=== PATIENT | female | born 1970 | race Caucasian/White ===

== ENCOUNTER → 2017-05-10 | Outpatient (CLI) | payer MEDICARE, BC ==
[~2017-05-10] MED LIST: AMOX-559 PO; AZIT-101 PO; B12/1TAB PO; BUPR1PAT9 TD; BUTA1CAP4 PO; CALC200T27 PO; CEFU500T50 PO; CHOL10005 PO; CIPR-345 PO; CLON-1 PO; CLON-327 PO; CLON-389 PO; CLON0.5T66 PO; CYAN1000 IJ; CYCL10TA29 PO; DIAZ-305 PO; DIAZ2TAB72 PO; DRON2.5C10 PO; DULO60CA56 PO; ERGO500037 PO; ESOM40CA42 PO; FERR240T18 PO; FLU20 PO; FLUD0.1T12 PO; FLUO-202 PO; FLUO40CA76 PO; FOLI-68 PO; GENT5DRO31 OP; GOLYTE FT; HYDR-4305 PO; LEVO-3 PO; LEVO125T77 PO; LEVO200T44 PO; LOR5/325 PO; LORA-1455 PO; METH10 FT; METH36TA11 PO; METH54TA10 PO; METO-733 PO; MULT-1335 PO; OLAN10TA25 PO; OLAN2.5T22 PO; OLAN5TAB27 PO; OMEP40CA45 PO; ONDA4TAB PO; OXYC-869 PO; OXYC15TA79 PO; OXYC5TAB38 PO; PANT40TA65 PO; PENI-24 PO; PER PO; PROM-110; PROM-110 PO; PROM25SU8 PR; QUET300T PO; RANI-324 PO; ROPI0.5T25 PO; ROPI2TAB28 PO; SCOP1PAT16 TD; SCOT TD; SUCR1ORA17 PO; SUCR1TAB85 PO; THIA100T2 PO; TOPI50TA99 PO; TRAM-420 PO; TRET45CR28 TP; TRIA15CR40 TP; ZOLP-1 PO; ZOLP-350 PO; [UNRECOGNIZED DRUG - CODE] PO
--- NOTE | 2017-05-10 14:35 | EKG ---
FACILITY: [facility] - [place] PATIENT NAME: VENKAT ORTEGA : [id number] MR: [id number] V: [id number] EXAM DATE: ORDERING PHYSICIAN: RENAN MADISON TECHNOLOGIST: NANCY Test Reason : CHEST PAIN Blood Pressure : / mmHG Vent. Rate : 075 BPM Atrial Rate : 075 BPM P-R Int : 132 ms QRS Dur : 088 ms QT Int : 368 ms P-R-T Axes : 073 080 070 degrees QTc Int : 410 ms Normal sinus rhythm with sinus arrhythmia Normal ECG When compared with ECG of 06-MAR-2016 12:27, No significant change was found Referred By: GRICELDA Confirmed By:
== END ==
LOC: RESP 10:32
PROVIDERS: ATTEND Surgery
DX: Z02.9 Encounter for administrative examinations, unspecified (principal)

== ENCOUNTER 2017-05-23 15:00 | Outpatient (RCR) | payer MEDICARE, BC ==
[2017-03-08 15:29] VITALS: BP 94/52
[2017-03-08 16:11] LABS: PLATELET COUNT, AUTOMATED 235 K/uL (150-450)
[2017-03-18 12:03] LABS: PLATELET COUNT, AUTOMATED 368 K/uL (150-450)
[2017-03-18 13:08] VITALS: BP 102/62
[2017-04-03 14:22] VITALS: BP 93/66
[2017-04-12 14:39] VITALS: BP 111/68
[2017-05-02 11:28] LABS: PLATELET COUNT, AUTOMATED 261 K/uL (150-450)
[2017-05-09 08:55] VITALS: BP 91/62
[2017-05-09 09:21] LABS: PLATELET COUNT, AUTOMATED 350 K/uL (150-450)
[2017-05-16 12:30] VITALS: BP 99/64
[2017-05-16 13:36] LABS: PLATELET COUNT, AUTOMATED 334 K/uL (150-450)
[~2017-05-23 15:00] MED LIST changes: +ALTEPLASE RECOMB 2 MG VIAL IVP PRN; +DEXTROSE 5%(*) 100 ML BAG 100 ML IVPB PRN; +FERRIC CARBOXY 750 MG SDV 750 MG in NS(*) 0.9% 250 ML BAG 250 ML IVP ONE; +NS(*) 0.9% 100 ML BAG 100 ML IVPB PRN; +NS(*) 0.9% 500 ML BAG 500 ML IV PRN; +WATER STERILE 10 ML VIAL IVP PRN
[2017-05-23 15:52] LABS: PLATELET COUNT, AUTOMATED 222 K/uL (150-450)
== END 2017-06-06 ==
LOC: SPU 15:00
PROVIDERS: ATTEND Internal Medicine
DX: R62.7 Adult failure to thrive (principal); R63.4 Abnormal weight loss; R74.8 Abnormal levels of other serum enzymes; I95.9 Hypotension, unspecified; Z98.84 Bariatric surgery status; Z93.1 Gastrostomy status
CPT/HCPCS: 36415; 36592; 83735; 84100; 85025; 85027; 96365; 96366; 96375; J1439; J2997; J7050; 82040; 82247; 82310; 82374; 82435; 82565; 82947; 84075; 84132; 84155; 84295; 84450; 84460; 84520

== ENCOUNTER → 2017-06-20 | Outpatient (CLI) | payer MEDICARE, BC ==
[~2017-06-20] MED LIST changes: -ALTEPLASE RECOMB 2 MG VIAL IVP PRN; -DEXTROSE 5%(*) 100 ML BAG 100 ML IVPB PRN; -FERRIC CARBOXY 750 MG SDV 750 MG in NS(*) 0.9% 250 ML BAG 250 ML IVP ONE; +LIDOCAINE MPF 1% 5 ML VIAL ONE; +NS(*) 0.9% 10 ML VIAL 0 ML ONE; -NS(*) 0.9% 100 ML BAG 100 ML IVPB PRN; -NS(*) 0.9% 500 ML BAG 500 ML IV PRN; -WATER STERILE 10 ML VIAL IVP PRN
--- NOTE | 2017-06-20 13:06 | RADIOLOGY IMAGING REPORT ---
[place] [facility] [place] Chela Metcalf : 1970 MR: [id number] V: [id number] EXAM DATE: ORDERING PHYSICIAN: RENAN MADISON TECHNOLOGIST: Location: [facility] [place] Patient: Chela Metcalf : 1970 Visit/Account:[id number] Date of Sevice: 06/20/2017 PICC LINE PLACEMENT, PICC LINE INSERTION Exam: PICC line placement with ultrasound and fluoroscopic guidance. Indication: Long-term IV access Radiation dose: DAP 33.91 uGym2; AK 0.9 mGy Findings: Prior to the exam, the risks and benefits of a PICC line were discussed with the patient an d informed consent was obtained. The patient was placed supine on the fluoroscopy table and the [facility] t arm was prepped and draped in normal sterile fashion. 1% buffered lidocaine was locally injected f or analgesia. Next, using ultrasound guidance, a micropuncture needle was used to access the basilic vein. An ultrasound image was saved for the patient's permanent record in PACS. An 018 guidewire w as advanced, and then measurement was made to the high right atrium. A dual-lumen power PICC was the n placed via a 5 Vincentian peel-away sheath. The PICC was then secured at the skin. Impression: Successful placement of a dual lumen 5 Vincentian power PICC in the Right basilic vein. The catheter is ready for use. Report Dictated By: Gerardo Basurto at 06/20/2017 1:00 PM Report E-Signed By: Gerardo Basurto at 06/20/2017 1:01 PM NERYN:[id number]
--- NOTE | 2017-06-20 13:06 | RADIOLOGY IMAGING REPORT ---
FACILITY: [facility] [place] PATIENT NAME: Chela Metcalf : 1970 MR: [id number] V: [id number] EXAM DATE: ORDERING PHYSICIAN: RENAN MADISON TECHNOLOGIST: Location: [facility] Patient: Chela Metcalf : 1970 Visit/Account:[id number] Date of Sevice: 06/20/2017 PICC LINE PLACEMENT, PICC LINE INSERTION Exam: PICC line placement with ultrasound and fluoroscopic guidance. Indication: Long-term IV access Radiation dose: DAP 33.91 uGym2; AK 0.9 mGy Findings: Prior to the exam, the risks and benefits of a PICC line were discussed with the patient an d informed consent was obtained. The patient was placed supine on the fluoroscopy table and the [facility] t arm was prepped and draped in normal sterile fashion. 1% buffered lidocaine was locally injected f or analgesia. Next, using ultrasound guidance, a micropuncture needle was used to access the basilic vein. An ultrasound image was saved for the patient's permanent record in PACS. An 018 guidewire w as advanced, and then measurement was made to the high right atrium. A dual-lumen power PICC was the n placed via a 5 Bahamian peel-away sheath. The PICC was then secured at the skin. Impression: Successful placement of a dual lumen 5 Bahamian power PICC in the Right basilic vein. The catheter is ready for use. Report Dictated By: Gerardo Basurto at 06/20/2017 1:00 PM Report E-Signed By: Gerardo Basurto at 06/20/2017 1:01 PM NERYN:[id number]
== END ==
LOC: US 01:25
PROVIDERS: ATTEND Surgery
DX: E46 Unspecified protein-calorie malnutrition (principal)
CPT/HCPCS: 36569; 76937; C1751; J2001

== ENCOUNTER 2017-07-01 14:33 | Inpatient (IN) | payer MEDICARE, BC ==
[~2017-07-01] VITALS: Ht 167.6 cm; Wt 64.0 kg
[2017-07-01] MEDS ORDERED: VANCOMYCIN 1 GM ADDVIAL 1 GM in NS(*) 0.9% 250 ML ADDVAN BAG 250 ML IVPB ONE (15:30)
[2017-07-01] MEDS ORDERED: NS(*) 0.9% 1000 ML BAG 1,000 ML IV ONE ×2 (15:30→17:25)
[2017-07-01] MEDS ORDERED: PIPERACILLIN/TAZO*3.375GM VIAL 3.375 GM in NS(*) 0.9% 100 ML ADDVANT BAG 100 ML IVPB ONE (15:30)
--- NOTE | 2017-07-01 15:33 | ER Report ---
History and Physical Time Seen By MD: 15:33 HPI/ROS CHIEF COMPLAINT: PICC line infection. HISTORY OF PRESENT ILLNESS: This is a 47 year old female. She was sent over to the ER from Dr. Arnold today. She was seen because of fevers and chills and had pus coming from the area of her PICC line in right arm. Dr. Arnold removed the PICC line, obtained blood work and blood cultures. Recommended further evaluation in the ER and need for admission for what appeared to be sepsis. She had low blood pressure in the office and was low here as well. Mild elevation of her liver function tests. Bandemia and shift on blood count, but normal white blood cell count. CRP significantly elevated. The Patient has urinary frequency, but no dysuria. No cough. She gets a little short of breath when her chills and shivering are severe, but otherwise has no shortness of breath. Trouble eating and pain with use of her G-tube, which is why she had the PICC line to get overnight TPN for weight loss problems. Has seen Dr. Rhodes recently for anemia and had IV iron infusion. Had similar problem with PICC line in the left arm last month, which was removed. Rash around the site last month and with this current PICC line problem as well. GI and general surgery are currently doing further workup for solutions. REVIEW OF SYSTEMS: Constitutional: As above. Eyes: No vision changes. ENT: Mild sore throat. No congestion. Cardiovascular: No chest pain. Respiratory: No shortness of breath. Gastrointestinal: Normal bowels. Genitourinary: As above. Musculoskeletal: Chronic back pain. Skin: As above. Neurological: Generalized weakness. Allergies: Coded Allergies: Sulfa (Sulfonamide Antibiotics) (Verified Allergy, Mild, HIVES, 04/30/17) NSAIDS (Non-Steroidal Anti-Inflamma (Unverified Allergy, Unknown, 04/30/17 ) Home Meds Active Scripts Ferrous Gluconate (FERROUS GLUCONATE) 240 Mg Tablet, 240 MG PO TID, #90 TAB 5 Refills Prov:TREY HOWARD MD 05/01/17 Scopolamine (Scopolamine) 1 Mg/3 Day Patch.td.3, 1 MG TD Q72H, #10 PATCH.72H Prov:TREY HOWARD MD 02/28/17 Ergocalciferol (Vitamin D2) (VITAMIN D2) 50,000 Unit Capsule, 18637 UNIT PO Q2WK , #2 CAPSULE 6 Refills Prov:TREY HOWARD MD 02/28/17 Fludrocortisone Acetate (FLUDROCORTISONE ACETATE) 0.1 Mg Tablet, 0.1 MG PO BID, #60 TAB 3 Refills Prov:TREY HOWARD MD 11/21/16 Levothyroxine Sodium (LEVOTHYROXINE SODIUM) 100 Mcg Tablet, 100 MCG PO QDAY for 30 Days, #30 TAB 6 Refills Prov:TREY HOWARD MD 10/08/16 Pantoprazole Sodium (PANTOPRAZOLE SODIUM) 40 Mg Tablet.dr, 1 TAB PO BID, #60 TAB.SR 6 Refills Prov:TREY HOWARD MD 10/04/16 Tretinoin 0.1% Top Cream (RETIN-A 0.1% TOP CREAM) 45 Gm Cream..g., 45 GM TP BID , #1 BOTTLE 1 Refill .025% Prov:TREY HOWARD MD 04/20/16 Cyanocobalamin (Vitamin B-12) (CYANOCOBALAMIN INJECTION) 1,000 Mcg/1 Ml Vial, 1000 MCG IJ Q30D, #12 VIAL 1 Refill Prov:RENAN MADISON MD 01/20/14 Reported Medications Dronabinol (MARINOL) 2.5 Mg Capsule, 2.5 MG PO BID, CAPSULE 02/28/17 Olanzapine (OLANZAPINE) 10 Mg Tablet, 10 MG PO HS 11/21/16 Oxycodone Hcl 15 Mg Tab (OXYCODONE HCL 15 MG TAB) 15 Mg Tablet, 15 MG PO Q6H, TAB 11/21/16 Folic Acid (FOLIC ACID) 1 Mg Tablet, 1 MG PO QDAY, TAB 08/17/16 Clonazepam (KLONOPIN) Unknown Strength Tablet, 1 MG PO TID, TAB 06/27/16 Thiamine Mononitrate (VITAMIN B-1) 100 Mg Tablet, 100 MG PO QDAY 02/07/16 Cholecalciferol (Vitamin D3) (VITAMIN D3) 1,000 Unit Tablet, 3 UNIT PO HS, TAB 02/07/16 Calcium Citrate (CALCIUM CITRATE) 200 Mg Tablet, 1 MG PO BID 01/20/16 Fluoxetine Hcl (PROZAC) 20 Mg Capsule, 2 TAB PO QDAY, CAPSULE 10/07/15 Discontinued Reported Medications Gentamicin Sulfate (GENTAMICIN SULFATE) 5 Ml Drops, 5 ML OP 05/03/17 Reviewed Nurses Notes: Yes Hx Smoking: No Smoking Status: Current: Every Day Smoker Exposure to Second Hand Smoke?: No Hx Substance Use Disorder: No Hx Alcohol Use: No Constitutional Vital Sign - Last 24 Hours 07/01/17 07/01/17 07/01/17 07/01/17 14:35 15:36 16:00 16:03 Temp 98.8 Pulse 89 87 Resp 16 B/P (MAP) 83/74 83/74 (77) 88/57 (67) Pulse Ox 96 95 O2 Delivery Room Air 07/01/17 07/01/17 07/01/17 07/01/17 16:30 16:35 16:45 16:55 Pulse 84 81 83 B/P (MAP) 107/66 (80) Pulse Ox 96 96 93 07/01/17 07/01/17 07/01/17 07/01/17 17:00 17:05 17:15 17:20 Pulse 78 77 81 B/P (MAP) 90/50 (63) Pulse Ox 93 91 94 07/01/17 07/01/17 07/01/17 07/01/17 17:25 17:30 17:35 17:40 Pulse 76 79 80 79 B/P (MAP) 93/58 (70) Pulse Ox 94 91 95 93 07/01/17 07/01/17 07/01/17 07/01/17 17:45 17:50 17:55 18:00 Pulse 76 78 78 76 B/P (MAP) 91/60 (70) Pulse Ox 92 92 91 91 07/01/17 18:05 Pulse 77 Pulse Ox 92 Physical Exam General Appearance: The patient is alert. No acute distress. Eyes: Pupils are equal, round. No pallor, injection or icterus. ENT: Mucous membranes are moist. Normal oral mucosa. Posterior oropharynx is normal. Respiratory: Lungs are clear to auscultation. Cardiovascular: Regular rate and rhythm. No murmurs, gallops or rubs. Normal capillary refill. No edema. Gastrointestinal: Abdomen is soft, non-tender. Nondistended. Normal active bowel sounds. No costovertebral angle tenderness with percussion. Neurological: Alert and oriented x3. General weakness, without focal deficits. Skin: Warm and dry. Rash which is red, itchy and scaly around the site of PICC line on right arm. DIFFERENTIAL DIAGNOSIS: After history and physical exam, differential diagnosis was considered for PICC line infection with possible sepsis. Will plan on admission after starting IV fluids, IV Vancomycin, and IV Zosyn. Medical Decision Making Data Points Result Diagram: 07/02/17 0557 07/02/17 0557 Laboratory Hematology Test 07/01/17 15:31 07/01/17 16:25 Urine Color Evette Urine Clarity Slightly-cloudy Urine pH 5.0 pH (4.8-9.5) Urine Specific Buckley 1.017 Urine Protein 30 mg/dL (NEGATIVE) Urine Glucose (UA) Negative mg/dL (NEGATIVE) Urine Ketones Negative mg/dL (NEGATIVE) Urine Blood Large (NEGATIVE) Urine Nitrite Positive (NEGATIVE) Urine Bilirubin Negative (NEGATIVE) Urine Urobilinogen 2.0 mg/dL (0.2-1.9) Urine Leukocyte Esterase Trace (NEGATIVE) Urine RBC 151 /HPF (0-2/HPF) Urine WBC 4 /HPF (0-5/HPF) Urine Squamous Epithelial Cells Moderate /LPF (</=FEW) Urine Renal Epithelial Cells Few /LPF (NONE-FEW) Urine Bacteria Few /HPF (NONE-FEW) Urine Hyaline Casts Many /LPF (NONE-FEW) Urine Mucus Few /HPF (NONE-FEW) Lactate 1.0 mmol/L (0.7-2.1) Chemistry Test 07/01/17 15:31 07/01/17 16:25 Urine Color Evette Urine Clarity Slightly-cloudy Urine pH 5.0 pH (4.8-9.5) Urine Specific Buckley 1.017 Urine Protein 30 mg/dL (NEGATIVE) Urine Glucose (UA) Negative mg/dL (NEGATIVE) Urine Ketones Negative mg/dL (NEGATIVE) Urine Blood Large (NEGATIVE) Urine Nitrite Positive (NEGATIVE) Urine Bilirubin Negative (NEGATIVE) Urine Urobilinogen 2.0 mg/dL (0.2-1.9) Urine Leukocyte Esterase Trace (NEGATIVE) Urine RBC 151 /HPF (0-2/HPF) Urine WBC 4 /HPF (0-5/HPF) Urine Squamous Epithelial Cells Moderate /LPF (</=FEW) Urine Renal Epithelial Cells Few /LPF (NONE-FEW) Urine Bacteria Few /HPF (NONE-FEW) Urine Hyaline Casts Many /LPF (NONE-FEW) Urine Mucus Few /HPF (NONE-FEW) Lactate 1.0 mmol/L (0.7-2.1) Urinalysis Test 07/01/17 15:31 Urine Color Evette Urine Clarity Slightly-cloudy Urine pH 5.0 pH (4.8-9.5) Urine Specific Buckley 1.017 Urine Protein 30 mg/dL (NEGATIVE) Urine Glucose (UA) Negative mg/dL (NEGATIVE) Urine Ketones Negative mg/dL (NEGATIVE) Urine Blood Large (NEGATIVE) Urine Nitrite Positive (NEGATIVE) Urine Bilirubin Negative (NEGATIVE) Urine Urobilinogen 2.0 mg/dL (0.2-1.9) Urine Leukocyte Esterase Trace (NEGATIVE) Urine RBC 151 /HPF (0-2/HPF) Urine WBC 4 /HPF (0-5/HPF) Urine Squamous Epithelial Cells Moderate /LPF (</=FEW) Urine Renal Epithelial Cells Few /LPF (NONE-FEW) Urine Bacteria Few /HPF (NONE-FEW) Urine Hyaline Casts Many /LPF (NONE-FEW) Urine Mucus Few /HPF (NONE-FEW) EKG/Imaging Imaging CHEST PA AND LAT HISTORY: sepsis COMPARISON: None FINDINGS: Cardiomediastinal contours: Normal Lungs and pleura: Normal Bones/soft tissues: Normal Other findings: None significant IMPRESSION: 1. Normal chest Report Dictated By: Graham Pak MD at 07/01/2017 4:24 PM ED Course/Re-evaluation Clinical Indication for ER IV: Hydration, IV Access ED Course Discussed with Dr. Ktaz. Started on IV Vancomycin and IV Zosyn. Given a liter of normal saline and a second liter started. [facility] line infection, sepsis. Decision to Disposition Date: Jul 01, 2017 Decision to Disposition Time: 17:07 Depart Departure Latest Vital Signs Vital Signs Date Time Temp Pulse Resp B/P (MAP) Pulse Ox O2 Delivery O2 Flow Rate FiO2 07/01/17 18:05 77 92 07/01/17 18:00 91/60 (70) 07/01/17 14:35 98.8 16 Room Air Impression: Primary Impression: Sepsis Additional Impressions: PICC line infection Urinary tract infection Condition: Condition Unchanged Disposition: Admitted from ER Referrals: TREY HOWARD MD (PCP) Problem Qualifiers Primary Impression: Sepsis Sepsis type: sepsis due to unspecified organism Qualified Codes: A41.9 - Sepsis, unspecified organism Additional Impressions: PICC line infection Encounter type: initial encounter Qualified Codes: T80.219A - Unspecified infection due to central venous catheter, initial encounter Urinary tract infection Urinary tract infection type: acute cystitis Hematuria presence: without hematuria Qualified Codes: N30.00 - Acute cystitis without hematuria AISHA HACKETT MD Jul 01, 2017 15:33
--- NOTE | 2017-07-01 16:29 | RADIOLOGY IMAGING REPORT ---
FACILITY: [facility] PATIENT NAME: Chela Metcalf : 1970 MR: [id number] V: [id number] EXAM DATE: ORDERING PHYSICIAN: AISHA HACKETT TECHNOLOGIST: Location: [facility] Patient: Chela Metcalf : 1970 Visit/Account:[id number] Date of Sevice: 07/01/2017 CHEST PA AND LAT HISTORY: sepsis COMPARISON: None FINDINGS: Cardiomediastinal contours: Normal Lungs and pleura: Normal Bones/soft tissues: Normal Other findings: None significant IMPRESSION: 1. Normal chest Report Dictated By: Graham Pak MD at 07/01/2017 4:24 PM Report E-Signed By: Graham Pak MD at 07/01/2017 4:25 PM WSN:[id number]
[2017-07-01 16:34] LABS: PLATELET COUNT, AUTOMATED 83 K/uL (150-450)
[2017-07-01] MEDS ORDERED: ACETAMINOPHEN 500 MG TAB PO ONE (16:45)
[2017-07-01] MEDS ORDERED: oxyCODONE HCL 5 MG CAP PO ONE (16:45)
[2017-07-01] MEDS ORDERED: VANCOMYCIN 1 GM ADDVIAL ONE (17:03)
[2017-07-01] MEDS ORDERED: NS(*) 0.9% 1000 ML BAG 1,000 ML IV PRN (18:30)
[2017-07-01] MEDS ORDERED: SCOPOLAMINE 1.5 MG PATCH TD PRN (18:45)
[2017-07-01] MEDS ORDERED: clonazePAM 1 MG TAB PO PRN (18:45)
[2017-07-01 19:01] VITALS: BP 101/61
--- NOTE | 2017-07-01 19:05 | History & Physical ---
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 She had the PICC line placed 11 days ago on 06/20. She reports that about 8 days ago, that she noted purulent discharge from around the PICC line. She also then developed a rash around the site as with previous PICC lines. 2 days ago, she developed chills alternating with sweats. She went to her PCP's office today and they removed the PICC line, jazmyn labs and sent her to the ER. The patient denies cough, coryza, or dysuria. In the ER, she was given IVF, Vancomycin and Zosyn. History Problems: (1) History of peptic ulcer disease Status: Chronic (2) Malnutrition compromising bodily function Status: Chronic (3) Depression Status: Chronic (4) PEG (percutaneous endoscopic gastrostomy) adjustment/replacement/removal Status: Chronic (5) Dermatitis Status: Acute (6) Abdominal pain Status: Chronic Home Meds Active Scripts Ferrous Gluconate (FERROUS GLUCONATE) 240 Mg Tablet, 240 MG PO TID, #90 TAB 5 Refills Prov:TREY HOWARD MD 05/01/17 Scopolamine (Scopolamine) 1 Mg/3 Day Patch.td.3, 1 MG TD Q72H, #10 PATCH.72H Prov:TREY HOWARD MD 02/28/17 Ergocalciferol (Vitamin D2) (VITAMIN D2) 50,000 Unit Capsule, 00749 UNIT PO Q2WK , #2 CAPSULE 6 Refills Prov:TREY HOWARD MD 02/28/17 Fludrocortisone Acetate (FLUDROCORTISONE ACETATE) 0.1 Mg Tablet, 0.1 MG PO BID, #60 TAB 3 Refills Prov:TREY HOWARD MD 11/21/16 Levothyroxine Sodium (LEVOTHYROXINE SODIUM) 100 Mcg Tablet, 100 MCG PO QDAY for 30 Days, #30 TAB 6 Refills Prov:TREY HOWARD MD 10/08/16 Pantoprazole Sodium (PANTOPRAZOLE SODIUM) 40 Mg Tablet.dr, 1 TAB PO BID, #60 TAB.SR 6 Refills Prov:TREY HOWARD MD 10/04/16 Tretinoin 0.1% Top Cream (RETIN-A 0.1% TOP CREAM) 45 Gm Cream..g., 45 GM TP BID , #1 BOTTLE 1 Refill .025% Prov:TREY HOWARD MD 04/20/16 Cyanocobalamin (Vitamin B-12) (CYANOCOBALAMIN INJECTION) 1,000 Mcg/1 Ml Vial, 1000 MCG IJ Q30D, #12 VIAL 1 Refill Prov:RENAN MADISON MD 01/20/14 Reported Medications Gentamicin Sulfate (GENTAMICIN SULFATE) 5 Ml Drops, 5 ML OP 05/03/17 Dronabinol (MARINOL) 2.5 Mg Capsule, 2.5 MG PO BID, CAPSULE 02/28/17 Olanzapine (OLANZAPINE) 10 Mg Tablet, 10 MG PO QDAY 11/21/16 Oxycodone Hcl 15 Mg Tab (OXYCODONE HCL 15 MG TAB) 15 Mg Tablet, 15 MG PO Q6H, TAB 11/21/16 Folic Acid (FOLIC ACID) 1 Mg Tablet, 1 MG PO QDAY, TAB 08/17/16 Clonazepam (KLONOPIN) Unknown Strength Tablet, 1 MG PO TID, TAB 06/27/16 Thiamine Mononitrate (VITAMIN B-1) 100 Mg Tablet, 100 MG PO QDAY 02/07/16 Cholecalciferol (Vitamin D3) (VITAMIN D3) 1,000 Unit Tablet, 3 UNIT PO QDAY, TAB 02/07/16 Calcium Citrate (CALCIUM CITRATE) 200 Mg Tablet, 1 MG PO BID 01/20/16 Fluoxetine Hcl (PROZAC) 20 Mg Capsule, 2 TAB PO QDAY, CAPSULE 10/07/15 Allergies: Coded Allergies: Sulfa (Sulfonamide Antibiotics) (Verified Allergy, Mild, HIVES, 04/30/17) NSAIDS (Non-Steroidal Anti-Inflamma (Unverified Allergy, Unknown, 04/30/17 ) Patient History: Cancer of eye FATHER, Age:54 FH: COPD (chronic obstructive pulmonary disease) MOTHER, Age:54 FH: diabetes mellitus FATHER, Age:54 FH: hypothyroidism MOTHER, Age:54 FH: melanoma FATHER, Age:54 Other Social/Family Hx Quit smoking in 2014. Smoked for 20 years. No alcohol use. Hx Smoking: No Smoking Status: Current: Every Day Smoker Exposure to Second Hand Smoke?: No Caffeine Intake: Soda Caffeine/Cups Per Day: ABOUT 2/WEEK Hx Alcohol Use: No Hx Substance Use Disorder: No Social Drug Use: Never Review of Systems All Systems Reviewed/Normal: Yes, Except as Noted Exam Vital Signs Vital Signs Date Time Temp Pulse Resp B/P (MAP) Pulse Ox O2 Delivery O2 Flow Rate FiO2 07/01/17 19:11 99.1 113 14 131/83 (99) 92 Room Air General Appearance: Alert, Awake, No Acute Distress Neuro: No Gross deficits Eyes: PERRLA ENT: Moist Mucous Membranes Cardiovascular: Other (Borderline tachy) Respiratory: Clear to Auscultation GI: Abd Soft and Non-Tender (Feeding tube in place. ) Extremities: No Edema Medical Decision Making Data Points Result Diagram: 07/01/17 1625 Item Value Date Time Lactate 1.0 mmol/L 07/01/17 1625 Total Bilirubin 0.5 mg/dl 07/01/17 1211 Aspartate Amino Transf (AST/SGOT) 65 U/L H 07/01/17 1211 Alanine Aminotransferase (ALT/SGPT) 107 U/L H 07/01/17 1211 Alkaline Phosphatase 146 U/L H 07/01/17 1211 C-Reactive Protein 17.3 mg/dl H 07/01/17 1211 Platelet Count 116 K/uL L 07/01/17 1211 Platelet Count 83 K/uL L 07/01/17 1625 Hemoglobin 17.1 g/dL H 07/01/17 1211 Hemoglobin 15.3 g/dL 07/01/17 1625 White Blood Count 8.8 k/uL 07/01/17 1211 White Blood Count 8.5 k/uL 07/01/17 1625 Neutrophils % (Manual) 80 % H 07/01/17 1211 Band Neutrophils % 12 % 07/01/17 1211 Lymphocytes % (Manual) 2 % L 07/01/17 1211 Atypical Lymphocytes % 1 % 07/01/17 1211 Neutrophils (%) (Auto) 86.7 % H 07/01/17 1625 Lymphocytes (%) (Auto) 5.4 % L 07/01/17 1625 Monocytes (%) (Auto) 5.7 % 07/01/17 1625 Eosinophils (%) (Auto) 1.1 % 07/01/17 1625 Urine RBC 151 /HPF 07/01/17 1531 Urine Leukocyte Esterase Trace H 07/01/17 1531 Urine Nitrite Positive H 07/01/17 1531 Urine Squamous Epithelial Cells Moderate /LPF H 07/01/17 1531 Urine Hyaline Casts Many /LPF H 07/01/17 1531 EKG / Imaging Imaging CXR - 1. Normal chest Assessment and Plan Problems: (1) PICC line infection Status: Acute Assessment & Plan: She presented with chills for 2 days and purulent discharge from a PICC line for 8 days. The PICC line was placed 11 days prior to admission (06/20). It was removed in the outpatient clinic and blood cultures were drawn there. Lactate normal. BP is low normal, per her baseline. Will give Vancomycin and Primaxin and continue with hydration. Recheck blood cultures tomorrow morning. (2) Elevated liver enzymes Status: Acute Assessment & Plan: Etiology unclear. Will follow. (3) Malnutrition compromising bodily function Status: Chronic Assessment & Plan: Will give PPN and lipids for now. She can eat as tolerated. Continue vitamine supplements, Marinol, and Scopolamine. (4) Depression Status: Chronic Assessment & Plan: Continue Fluoxetine and Clonazepam. (5) Chronic marginal ulcer Status: Chronic Assessment & Plan: Continue Protonix (6) Hypotension Status: Chronic Assessment & Plan: Continue fludrocortisone. (7) Chronic pain Status: Chronic Assessment & Plan: Continue OxyContin and Oxycodone. Copies to: TREY HOWARD MD; RENAN MADISON MD Venous Thromboembolism Antithrombotics Is Pt On Any Antithrombotics?: No Exam Sepsis Risk: No Definite Risk Problem Qualifiers (1) PICC line infection: Encounter type: initial encounter Qualified Codes: T80.219A - Unspecified infection due to central venous catheter, initial encounter PATTIE VILLALOBOS MD Jul 01, 2017 19:05
[2017-07-01 19:11] VITALS: BP 131/83
[2017-07-01] MEDS: DRONABINOL 2.5 MG CAP PO SCH (20:58)
[2017-07-01] MEDS: PANTOPRAZOLE SOD 40 MG TABEC PO SCH (20:58)
[2017-07-01] MEDS: [UNRECOGNIZED DRUG - OTHER] PO SCH (20:59)
[2017-07-01] MEDS: FERROUS GLUCONATE 324 MG TAB PO SCH (20:59)
[2017-07-01] MEDS ORDERED: FERROUS GLUCONATE 324 MG TAB PO SCH (21:00)
[2017-07-01] MEDS: CALCIUM CITRATE/ERGOCALCIFEROL PO SCH (21:00)
[2017-07-01] MEDS: OLANZapine 5 MG TAB PO SCH (21:00)
[2017-07-01] MEDS: FAT EMULSION 20% 250 ML BAG 250 ML IVPB SCH (21:02)
[2017-07-01] MEDS: AMINO ACID IV SCH (21:03)
[2017-07-01] MEDS: MULTIVITAMINS IV SCH (21:03)
[2017-07-01] MEDS: [UNRECOGNIZED DRUG - OTHER] IV SCH (21:03)
[2017-07-01] MEDS: GLYCER IV SCH (21:03)
[2017-07-01] MEDS: IMIPENEM/CILASTA(*) 500MG VIAL 500 MG in NS(*) 0.9% 100 ML BAG 100 ML IVPB SCH (21:31)
[2017-07-01 23:21] VITALS: BP 108/51
[2017-07-02] MEDS: IMIPENEM/CILASTA(*) 500MG VIAL 500 MG in NS(*) 0.9% 100 ML BAG 100 ML IVPB SCH ×4 (02:07→20:37)
[2017-07-02] MEDS: oxyCODONE HCL 5 MG CAP PO PRN ×3 (04:26→16:00)
[2017-07-02] MEDS ORDERED: VANCOMYCIN 1 GM ADDVIAL 1 GM in NS(*) 0.9% 250 ML ADDVAN BAG 250 ML IVPB SCH (06:00)
[2017-07-02] MEDS: LEVOTHYROXINE SOD 0.1 MG TAB PO SCH (06:35)
[2017-07-02 06:57] LABS: PLATELET COUNT, AUTOMATED 60 K/uL (150-450)
[2017-07-02 07:30] VITALS: BP 89/48
[2017-07-02 08:00] VITALS: BP 84/42
[2017-07-02] MEDS: CHOLECALCIFEROL 1000 UNIT TAB PO SCH (08:20)
[2017-07-02] MEDS: CALCIUM CITRATE/ERGOCALCIFEROL PO SCH ×2 (08:21→20:37)
[2017-07-02] MEDS: DRONABINOL 2.5 MG CAP PO SCH ×3 (08:21→20:36)
[2017-07-02] MEDS: THIAMINE HCL 100 MG TAB PO SCH (08:21)
[2017-07-02] MEDS: PANTOPRAZOLE SOD 40 MG TABEC PO SCH ×2 (08:21→20:36)
[2017-07-02] MEDS: FOLIC ACID 1 MG TAB PO SCH (08:22)
[2017-07-02] MEDS: [UNRECOGNIZED DRUG - OTHER] PO SCH ×2 (08:22→20:37)
[2017-07-02] MEDS: FLUoxetine HCL 20 MG CAP PO SCH (08:22)
[2017-07-02] MEDS: FERROUS GLUCONATE 324 MG TAB PO SCH ×2 (08:22→20:36)
[2017-07-02 10:50] VITALS: BP 87/58
[2017-07-02 11:45] VITALS: BP 83/55
[2017-07-02] MEDS: NS(*) 0.9% 1000 ML BAG 1,000 ML IV PRN (12:14)
--- NOTE | 2017-07-02 12:52 | Hospitalist Progress Note ---
Subjective Progress Notes Subjective Patient reports she is doing well today. She has had some nausea and vomiting. Patient Complains of: Cardiovascular: No: Chest Pain Respiratory: No: Shortness of Breath Physical Exam Vital Signs Date Time Temp Pulse Resp B/P (MAP) Pulse Ox O2 Delivery O2 Flow Rate FiO2 07/02/17 11:45 99.0 80 16 83/55 (64) 92 Room Air 07/01/17 23:21 2.0 Intake and Output 07/03/17 07:00 Intake Total 174 ml Output Total 100 ml Balance 74 ml Intake Oral 60 ml IV Total 114 ml Output Emesis 100 ml General Appearance: Alert, Awake, No Acute Distress, Afebrile Cardiovascular: Regular Rate and Rhythm Respiratory: No Respiratory Distress, Clear to Auscultation Psych: Alert & Oriented X3, Appropriate Mood & Affect Result Diagram: 07/02/1757 07/02/17556 Assessment and Plan Problems: (1) PICC line infection Status: Acute Assessment & Plan: She presented with chills for 2 days and purulent discharge from a PICC line for 8 days. The PICC line was placed prior to admission (06/20) . The PICC line was removed in the outpatient clinic. Blood cultures show no growth currently. She will continue Vancomycin and Primaxin. Will continue to follow cultures. (2) Urinary tract infection Status: Acute Assessment & Plan: Patient presented with urinary frequency upon admission. Preliminary urine culture currently showing gram negative marques. Patient is on Primaxin. Will continue to follow urine culture. (3) Elevated liver enzymes Status: Acute Assessment & Plan: Enzymes have decreased today. (4) Malnutrition compromising bodily function Status: Chronic Assessment & Plan: Will give PPN and lipids for now, until a new PICC can be placed for TPN. She can eat as tolerated. Continue vitamine supplements, Marinol, and Scopolamine. (5) Depression Status: Chronic Assessment & Plan: Continue Fluoxetine and Clonazepam. (6) Chronic marginal ulcer Status: Chronic Assessment & Plan: Continue Protonix. (7) Hypotension Status: Chronic Assessment & Plan: Continue fludrocortisone. (8) Chronic pain Status: Chronic Assessment & Plan: Continue OxyContin and Oxycodone. Time Spent on Plan of Care: < 30 min Exam Sepsis Risk: No Definite Risk Problem Qualifiers (1) PICC line infection: Encounter type: initial encounter Qualified Codes: T80.219A - Unspecified infection due to central venous catheter, initial encounter (2) Urinary tract infection: Urinary tract infection type: acute cystitis Hematuria presence: without hematuria Qualified Codes: N30.00 - Acute cystitis without hematuria ILEANA QUIJANO Jul 02, 2017 12:51
[2017-07-02 15:58] VITALS: BP 84/55
--- NOTE | 2017-07-02 16:31 | Medical Nutrition Therapy ---
Nutrition Anthropometrics Height (Inches): 66.00 Height (Calculated Centimeters: 167.884572 Weight (Pounds): 141 Weight (Calculated Kilograms): 64.098 Cheko Nutrition Score: Adequate Cheko Nutrition Risk Score: 19 Dietary Referral Nutrition Risk Factors: TPN/PPN, Tube Feeding Nutrition Risk Comment: Physical Findings Physical Appearance: Skin Appearance Skin Appearance: Edema Edema Location Modifier: Edema Location: Type of Edema: Degree of Edema: Gastrointestinal Symptoms GI Symtoms: Nausea, Vomiting Tube Present: PEG Bowel Sounds: Recent Bowel Pattern: Stool Characteristics: Nutritional Diagnosis Nutritional Risk Acuity 1: TPN/PPN, Malnutrition Nutritional Risk Acuity 2: GI Malabsorption Past Medical History: Peptic ulcer disease, malnutrition, depression, PEG, abdominal pain, hypotension Nutritional Acuity: 1-High Nutrition Problem/Etiology/Sym: Inadequate oral intake related to diagnosis of malabsorption as evidenced by need for terminal operator TPN. Energy Requirement: 1600 (25kcal/kg) Protein Requirement: 51 (0.8g/kg) Fluid Requirement: 1600 (25 ml/kg) Diet Type: Diet as Tolerated ERIC/REG Nutrition Intervention: Cont diet as ordered, Encourage intake Nutritional Support Current Enteral / Parental: PPN Current Tube Feeding Formula C: Procalamine Tube Feeding Supplement Streng: Full Rate: 50 mls/hr Current Duration: 24 Current Calories: 295 Current Lipids Calories: 500 Total Current Calories: 795 Nutrition Monitoring & Eval Nutrition Goals: Eat 50-100% Meal RD Patient Assessment Time: [address] Assessment Type: Nutrition Support Consult Nutritional Comment: Pt was admitted for infected PICC line. Hx: Peptic ulcer disease, malnutrition, depression, PEG, abdominal pain, hypotension, residential TPN. Labs: 07/02) Na 134, BUN 6, Ca 7.7, ALT 57, Alb 2.1. Regular diet. Po intake 50% x 2 meals. PPN: Intralipid 250ml/day, Procalamine 1200mL/day. Providing 795 kcals/day and 35 grams of protein, meeting 49% of EER and 68% of estimated protein needs. . Encourage po intake, monitor labs, weight, po intake. JESSICA POLK Jul 02, 2017 16:07
[2017-07-02] MEDS: VANCOMYCIN(*) 1 GM VIAL 1 GM, VANCOMYCIN (*) 0.5 GM VIAL 0.25 GM in NS(*) 0.9% 250 ML B... IVPB SCH (18:45)
[2017-07-02] MEDS: FAT EMULSION 20% 250 ML BAG 250 ML IVPB SCH (20:35)
[2017-07-02] MEDS: OLANZapine 5 MG TAB PO SCH (20:36)
[2017-07-02] MEDS: [UNRECOGNIZED DRUG - OTHER] IV SCH (20:38)
[2017-07-02] MEDS: MULTIVITAMINS IV SCH (20:38)
[2017-07-02] MEDS: AMINO ACID IV SCH (20:38)
[2017-07-02] MEDS: GLYCER IV SCH (20:38)
[2017-07-02 20:46] VITALS: BP 99/62
[2017-07-03] MEDS: oxyCODONE HCL 5 MG CAP PO PRN ×3 (02:19→17:11)
[2017-07-03] MEDS: IMIPENEM/CILASTA(*) 500MG VIAL 500 MG in NS(*) 0.9% 100 ML BAG 100 ML IVPB SCH ×2 (02:19→08:43)
[2017-07-03] MEDS: NS(*) 0.9% 1000 ML BAG 1,000 ML IV PRN ×2 (04:23→20:29)
[2017-07-03] MEDS: VANCOMYCIN(*) 1 GM VIAL 1 GM, VANCOMYCIN (*) 0.5 GM VIAL 0.25 GM in NS(*) 0.9% 250 ML B... IVPB SCH (06:22)
[2017-07-03] MEDS: LEVOTHYROXINE SOD 0.1 MG TAB PO SCH (06:22)
[2017-07-03 07:15] VITALS: BP 103/70
[2017-07-03] MEDS: DRONABINOL 2.5 MG CAP PO SCH ×2 (08:44→20:30)
[2017-07-03] MEDS: CHOLECALCIFEROL 1000 UNIT TAB PO SCH (08:44)
[2017-07-03] MEDS: THIAMINE HCL 100 MG TAB PO SCH (08:44)
[2017-07-03] MEDS: CALCIUM CITRATE/ERGOCALCIFEROL PO SCH ×2 (08:44→20:30)
[2017-07-03] MEDS: PANTOPRAZOLE SOD 40 MG TABEC PO SCH ×2 (08:44→20:30)
[2017-07-03] MEDS: [UNRECOGNIZED DRUG - OTHER] PO SCH ×2 (08:44→20:31)
[2017-07-03] MEDS: FERROUS GLUCONATE 324 MG TAB PO SCH ×2 (08:44→20:30)
[2017-07-03] MEDS: FLUoxetine HCL 20 MG CAP PO SCH (08:45)
[2017-07-03] MEDS: FOLIC ACID 1 MG TAB PO SCH (08:45)
[2017-07-03] MEDS ORDERED: INFLUENZA VIRUS VAC 0.5 ML SYR IM ONLY ONE (09:00)
[2017-07-03 11:05] VITALS: BP 103/67
[2017-07-03] MEDS: LEVOFLOXACIN/D5W 250 MG/50 ML 50 ML IVPB SCH (11:13)
--- NOTE | 2017-07-03 11:20 | Hospitalist Progress Note ---
Subjective Progress Notes Subjective No fever. We had discussion regarding her previous tube feedings and how she tolerated it. Physical Exam Vital Signs Date Time Temp Pulse Resp B/P (MAP) Pulse Ox O2 Delivery O2 Flow Rate FiO2 07/03/17 11:05 98.3 103/67 (79) 07/03/17 08:01 96 Nasal Cannula 1.5 07/03/17 07:15 14 07/02/17 20:46 68 Intake and Output 07/04/17 07:00 Intake Total 250 ml Balance 250 ml IV Total 250 ml General Appearance: Alert, Awake GI: Other (Soft/BS persent/PEG button in left upper quadrant) Result Diagram: 07/02/17 0557 07/02/17 0557 Assessment and Plan Problems: (1) PICC line infection Status: Acute Assessment & Plan: She presented with chills for 2 days and purulent discharge from a PICC line for 8 days. The PICC line was placed prior to admission (06/20) . The PICC line was removed in the outpatient clinic. Blood cultures show no growth currently. She has had no fever and WBC count is normal. Will DC the antibiotics today. (2) Urinary tract infection Status: Acute Assessment & Plan: Patient presented with urinary frequency upon admission. Urine culture growing E.coli. Patient has been on Primaxin - will stop in favor of Levaquin 250mg IV q24hrs. (3) Elevated liver enzymes Status: Acute Assessment & Plan: Enzymes have continued to improve and are near normal. (4) Malnutrition compromising bodily function Status: Chronic Assessment & Plan: Will continue PPN and lipids for now. She can eat as tolerated. Continue vitamine supplements, Marinol, and Scopolamine. Will try to initiate tube feedings as she is willing to try. Will start with 1/2 strength at 25cc/hr. If she does well with it, will try to slowly increase over next couple of days. If this does not work, will need to consider replacing the PICC line so she can resume TPN. (5) Depression Status: Chronic Assessment & Plan: Continue Fluoxetine and Clonazepam. (6) Chronic marginal ulcer Status: Chronic Assessment & Plan: Continue Protonix. (7) Hypotension Status: Chronic Assessment & Plan: Continue fludrocortisone. (8) Chronic pain Status: Chronic Assessment & Plan: Continue OxyContin and Oxycodone. Exam Sepsis Risk: No Definite Risk Problem Qualifiers (1) PICC line infection: Encounter type: initial encounter Qualified Codes: T80.219A - Unspecified infection due to central venous catheter, initial encounter (2) Urinary tract infection: Urinary tract infection type: acute cystitis Hematuria presence: without hematuria Qualified Codes: N30.00 - Acute cystitis without hematuria VIKRAM LUO MD Jul 03, 2017 11:20
--- NOTE | 2017-07-03 14:35 | Medical Nutrition Therapy ---
Nutrition Anthropometrics Height (Inches): 66.00 Height (Calculated Centimeters: 167.252799 Weight (Pounds): 141 Weight (Calculated Kilograms): 64.098 Cheko Nutrition Score: Adequate Cheko Nutrition Risk Score: 16 Dietary Referral Nutrition Risk Factors: TPN/PPN, Tube Feeding Nutrition Risk Comment: Physical Findings Physical Appearance: Skin Appearance Skin Appearance: Edema Edema Location Modifier: Edema Location: Type of Edema: Degree of Edema: Gastrointestinal Symptoms GI Symtoms: Nausea, Vomiting Tube Present: PEG Bowel Sounds: Recent Bowel Pattern: Stool Characteristics: Nutritional Diagnosis Nutritional Risk Acuity 1: TPN/PPN, Malnutrition Nutritional Risk Acuity 2: GI Malabsorption Past Medical History: Peptic ulcer disease, malnutrition, depression, PEG, abdominal pain, hypotension Nutritional Acuity: 1-High Nutrition Problem/Etiology/Sym: Inadequate oral intake related to diagnosis of GI malabsorption as evidenced by need for penitentiary TPN. Energy Requirement: 1600 (25kcal/kg) Protein Requirement: 51 (0.8g/kg) Fluid Requirement: 1600 (25 ml/kg) Diet Type: Diet as Tolerated ERIC/REG, Tube Feeding (TF) Nutrition Intervention: Cont diet as ordered, Encourage intake Nutritional Support Current Enteral / Parental: Tube Feeding Tube Feeding Formulas: Osmolite 1.5cal/ml-Hi Alireza Current Tube Feeding Formula C: procal Tube Feeding Supplement Stren/2 Feeding Route: PEG Rate: 50 mls/hr Current Duration: 24 Current Calories: 900 Current Protein: 37 Total Current Calories: 900 Recommended Enteral / Parental: Tube Feeding Recommended Tube Feeding Formu: Osmolite 1.5cal/ml-Hi Alireza Tube Feeding Supplement Stren/2 Recommended Feeding Route: PEG Recommended Rate: 60 cc/hr/24hr Recommended Calories: 2160 Recommended Protein: 90 Total Recommended Calories: 2160 Nutrition Monitoring & Eval RD Patient Assessment Time: [address] Assessment Type: RD Assessment Patient Nutrition Acuity: 1-High Follow Up Date: Jul 04, 2017 Nutritional Comment: Pt was admitted for infected PICC line. Hx: Peptic ulcer disease, malnutrition, depression, PEG, abdominal pain, hypotension, director long term care TPN. Labs: 07/02) Na 134, BUN 6, Ca 7.7, ALT 57, Alb 2.1. Regular diet. Po intake 50% x 2 meals. PPN: Intralipid 250ml/day, Procalamine 1200mL/day. Providing 795 kcals/day and 35 grams of protein, meeting 49% of EER and 68% of estimated protein needs. . Encourage po intake, monitor labs, weight, po intake. 07/03) No new labs. MD will DC PPN, initiate Osmolite 1.5 through PEG at 25 cc/hr today and see how patient tolerates. She states she has not been able to tolerate anything through her PEG tube other than H20. Initial TF will provide 900kcals/day (56%of EER) 37 g of pro (72% of est. pro needs). If pt tolerates TF, MD will increase rate to 60 mL/hr providing 2160 kcals (135% of EER) 90 g of pro (176% of protein). RD will reccomend goal rate of 40 mL providing 1440 kcals (90% of EER) and 60 grams of protein (117% of est. needs). Pt does eat but states she cannot keep food down orally. Diet is regular with po intake 50% x 4 meals.Will monitor labs, po intake, TF tolerance and watch for "dumping syndrome" (abdominal discomfort, nausea), residuals and weight. JESSICA POLK Jul 03, 2017 10:53
[2017-07-03] MEDS ORDERED: PROMETHAZINE 25 MG/ML 1 ML AMP IVP PRN (15:45)
[2017-07-03] MEDS ORDERED: MULTIVITAMINS IV SCH (16:30)
[2017-07-03] MEDS ORDERED: AMINO ACID IV SCH (16:30)
[2017-07-03] MEDS ORDERED: [UNRECOGNIZED DRUG - OTHER] IV SCH (16:30)
[2017-07-03] MEDS ORDERED: GLYCER IV SCH (16:30)
[2017-07-03 19:47] VITALS: BP 115/74
[2017-07-03] MEDS: FAT EMULSION 20% 250 ML BAG 250 ML IVPB SCH (20:29)
[2017-07-03] MEDS: OLANZapine 5 MG TAB PO SCH (20:30)
[2017-07-04] MEDS: oxyCODONE HCL 5 MG CAP PO PRN ×2 (00:59→08:02)
[2017-07-04 06:13] LABS: PLATELET COUNT, AUTOMATED 94 K/uL (150-450)
[2017-07-04] MEDS: LEVOTHYROXINE SOD 0.1 MG TAB PO SCH (07:15)
[2017-07-04 07:44] VITALS: BP 122/74
[2017-07-04] MEDS ORDERED: NS(*) 0.9% 10 ML VIAL 0 ML ONE (09:17)
[2017-07-04] MEDS ORDERED: LIDOCAINE MPF 1% 5 ML VIAL ONE (09:17)
[2017-07-04] MEDS: CHOLECALCIFEROL 1000 UNIT TAB PO SCH (09:19)
[2017-07-04] MEDS: [UNRECOGNIZED DRUG - OTHER] PO SCH (09:19)
[2017-07-04] MEDS: DRONABINOL 2.5 MG CAP PO SCH (09:20)
[2017-07-04] MEDS: FLUoxetine HCL 20 MG CAP PO SCH (09:20)
[2017-07-04] MEDS: THIAMINE HCL 100 MG TAB PO SCH (09:21)
[2017-07-04] MEDS: FERROUS GLUCONATE 324 MG TAB PO SCH (09:21)
[2017-07-04] MEDS: PANTOPRAZOLE SOD 40 MG TABEC PO SCH (09:21)
[2017-07-04] MEDS: CALCIUM CITRATE/ERGOCALCIFEROL PO SCH (09:21)
[2017-07-04] MEDS: FOLIC ACID 1 MG TAB PO SCH (09:21)
[2017-07-04] MEDS: LEVOFLOXACIN/D5W 250 MG/50 ML 50 ML IVPB SCH (10:45)
--- NOTE | 2017-07-04 11:39 | Hospitalist Depart ---
Discharge Summary Reason for Hosp/Final Diag: (1) PICC line infection Status: Acute Hospital Course & Plan: She presented with chills for 2 days and purulent discharge from a PICC ervin for 8 days. The PICC line was placed prior to admission (06/20) and was removed in the outpatient clinic. A culture was not obtained at the time of removal. She was afebrile at admission and her WBC was not elevated. Blood cultures from admission have been negative. She was initially on empiric treatment with Primaxin, but this has been discontinued. (2) Urinary tract infection Status: Acute Hospital Course & Plan: She was initially on Primaxin as above, but was then converted to levofloxacin. Her urine culture was positive for pansensitive E. coli. She has completed a full course of antibiotics. (3) Elevated liver enzymes Status: Acute Hospital Course & Plan: Resolved without specific treatment. (4) Malnutrition compromising bodily function Status: Chronic Hospital Course & Plan: She is on chronic TPN as an outpatient. We have ordered a new PICC line to be placed prior to discharge and she will then resume her regular TPN schedule. She will follow up with Dr. Madison next week. (5) Depression Status: Chronic Hospital Course & Plan: She is on chronic treatment with Fluoxetine and Clonazepam. (6) Chronic marginal ulcer Status: Chronic Hospital Course & Plan: She is on chronic treatment with Protonix. (7) Hypotension Status: Chronic Hospital Course & Plan: Continue fludrocortisone. (8) Chronic pain Status: Chronic Hospital Course & Plan: She is on chronic treatment with OxyContin and Oxycodone. Departure Latest Vital Signs Vital Signs 07/03/17 07/04/17 19:47 07:44 Temp 97.8 Pulse 66 Resp 16 B/P (MAP) 122/74 (90) Pulse Ox 91 O2 Delivery Room Air O2 Flow Rate 1.5 Weight (Pounds): 141 Weight (Ounces): 5.0 Result Diagram: 07/04/17 0538 07/04/1738 Condition: Improved Discharge: Home, Self Care Discharge Instructions Home Meds Active Scripts Ferrous Gluconate (FERROUS GLUCONATE) 240 Mg Tablet, 240 MG PO TID, #90 TAB 5 Refills Prov:TREY HOWARD MD 05/01/17 Scopolamine (Scopolamine) 1 Mg/3 Day Patch.td.3, 1 MG TD Q72H, #10 PATCH.72H Prov:TREY HOWARD MD 02/28/17 Ergocalciferol (Vitamin D2) (VITAMIN D2) 50,000 Unit Capsule, 65687 UNIT PO Q2WK , #2 CAPSULE 6 Refills Prov:TREY HOWARD MD 02/28/17 Fludrocortisone Acetate (FLUDROCORTISONE ACETATE) 0.1 Mg Tablet, 0.1 MG PO BID, #60 TAB 3 Refills Prov:TREY HOWARD MD 11/21/16 Levothyroxine Sodium (LEVOTHYROXINE SODIUM) 100 Mcg Tablet, 100 MCG PO QDAY for 30 Days, #30 TAB 6 Refills Prov:TREY HOWARD MD 10/08/16 Pantoprazole Sodium (PANTOPRAZOLE SODIUM) 40 Mg Tablet.dr, 1 TAB PO BID, #60 TAB.SR 6 Refills Prov:TREY HOWARD MD 10/04/16 Tretinoin 0.1% Top Cream (RETIN-A 0.1% TOP CREAM) 45 Gm Cream..g., 45 GM TP BID , #1 BOTTLE 1 Refill .025% Prov:TREY HOWARD MD 04/20/16 Cyanocobalamin (Vitamin B-12) (CYANOCOBALAMIN INJECTION) 1,000 Mcg/1 Ml Vial, 1000 MCG IJ Q30D, #12 VIAL 1 Refill Prov:RENAN MADISON MD 01/20/14 Reported Medications Dronabinol (MARINOL) 2.5 Mg Capsule, 2.5 MG PO BID, CAPSULE 02/28/17 Olanzapine (OLANZAPINE) 10 Mg Tablet, 10 MG PO HS 11/21/16 Oxycodone Hcl 15 Mg Tab (OXYCODONE HCL 15 MG TAB) 15 Mg Tablet, 15 MG PO Q6H, TAB 11/21/16 Folic Acid (FOLIC ACID) 1 Mg Tablet, 1 MG PO QDAY, TAB 08/17/16 Clonazepam (KLONOPIN) Unknown Strength Tablet, 1 MG PO TID, TAB 06/27/16 Thiamine Mononitrate (VITAMIN B-1) 100 Mg Tablet, 100 MG PO QDAY 02/07/16 Cholecalciferol (Vitamin D3) (VITAMIN D3) 1,000 Unit Tablet, 3 UNIT PO HS, TAB 02/07/16 Calcium Citrate (CALCIUM CITRATE) 200 Mg Tablet, 1 MG PO BID 01/20/16 Fluoxetine Hcl (PROZAC) 20 Mg Capsule, 2 TAB PO QDAY, CAPSULE 10/07/15 Discontinued Reported Medications Gentamicin Sulfate (GENTAMICIN SULFATE) 5 Ml Drops, 5 ML OP 05/03/17 Diet: Regular Activity: As Tolerated Copies to: TREY HOWARD MD; RENAN MADISON MD Venous Thromboembolism Antithrombotics Is Pt On Any Antithrombotics?: No Problem Qualifiers (1) PICC line infection: Encounter type: initial encounter Qualified Codes: T80.219A - Unspecified infection due to central venous catheter, initial encounter (2) Urinary tract infection: Urinary tract infection type: acute cystitis Hematuria presence: without hematuria Qualified Codes: N30.00 - Acute cystitis without hematuria RENAN HIGGINBOTHAM DO Jul 04, 2017 11:39
--- NOTE | 2017-07-04 14:12 | Medical Nutrition Therapy ---
Nutrition Anthropometrics Height (Inches): 66.00 Height (Calculated Centimeters: 167.941578 Weight (Pounds): 141 Weight (Calculated Kilograms): 64.098 [place] Nutrition Score: Adequate [place] Nutrition Risk Score: 20 Dietary Referral Nutrition Risk Factors: TPN/PPN, Tube Feeding Nutrition Risk Comment: Physical Findings Physical Appearance: Skin Appearance Skin Appearance: Edema Edema Location Modifier: Edema Location: Type of Edema: Degree of Edema: Gastrointestinal Symptoms GI Symtoms: Appetite Changes Tube Present: PEG Bowel Sounds: Recent Bowel Pattern: Stool Characteristics: Nutritional Diagnosis Nutritional Risk Acuity 1: TPN/PPN, Malnutrition Nutritional Risk Acuity 2: GI Malabsorption Past Medical History: Peptic ulcer disease, malnutrition, depression, PEG, abdominal pain, hypotension Nutritional Acuity: 1-High Nutrition Problem/Etiology/Sym: Inadequate oral intake related to diagnosis of GI malabsorption as evidenced by need for intermediate TPN. Energy Requirement: 1600 (25kcal/kg) Protein Requirement: 51 (0.8g/kg) Fluid Requirement: 1600 (25 ml/kg) Diet Type: Diet as Tolerated ERIC/REG, TPN/PPN Nutrition Intervention: Cont diet as ordered, Encourage intake Nutritional Support Current Enteral / Parental: Tube Feeding Tube Feeding Formulas: Osmolite 1.5cal/ml-Hi Alireza Current Tube Feeding Formula C: procal Tube Feeding Supplement Stren/2 Feeding Route: PEG Rate: 50 mls/hr Current Duration: 24 Current Calories: 900 Current Protein: 37 Total Current Calories: 900 Recommended Enteral / Parental: Tube Feeding Recommended Tube Feeding Formu: Osmolite 1.5cal/ml-Hi Alireza Tube Feeding Supplement Stren/2 Recommended Feeding Route: PEG Recommended Rate: 60 cc/hr/24hr Recommended Calories: 2160 Recommended Protein: 90 Total Recommended Calories: 2160 Nutrition Monitoring & Eval Nutrition Goals: Eat 50-100% Meal RD Patient Assessment Time: [address] Assessment Type: RD Assessment Patient Nutrition Acuity: 1-High Follow Up Date: Jul 06, 2017 Nutritional Comment: Pt was admitted for infected PICC line. Hx: Peptic ulcer disease, malnutrition, depression, PEG, abdominal pain, hypotension, intermediate TPN. Labs: 07/02) Na 134, BUN 6, Ca 7.7, ALT 57, Alb 2.1. Regular diet. Po intake 50% x 2 meals. PPN: Intralipid 250ml/day, Procalamine 1200mL/day. Providing 795 kcals/day and 35 grams of protein, meeting 49% of EER and 68% of estimated protein needs. . Encourage po intake, monitor labs, weight, po intake. 07/03) No new labs. MD will DC PPN, initiate Osmolite 1.5 through PEG at 25 cc/hr today and see how patient tolerates. She states she has not been able to tolerate anything through her PEG tube other than H20. Initial TF will provide 900kcals/day (56%of EER) 37 g of pro (72% of est. pro needs). If pt tolerates TF, MD will increase rate to 60 mL/hr providing 2160 kcals (135% of EER) 90 g of pro (176% of protein). RD will reccomend goal rate of 40 mL providing 1440 kcals (90% of EER) and 60 grams of protein (117% of est. needs). Pt does eat but states she cannot keep food down orally. Diet is regular with po intake 50% x 4 meals.Will monitor labs, po intake, TF tolerance and watch for "dumping syndrome" (abdominal discomfort, nausea), residuals and weight. 07/04) Pt did not agree to nutrition support via her PEG tube. Agreed to drink Ensure and is tolerating well. Will be receiving PICC line and discharging today. Labs: Na 134, Bun 5, Ca 7.8, Alb 2.1. No new weight. ERIC, no recent intake but drinking ensure. Encourage po intake. Monitor labs, po intake, weight. JESSICA POLK Jul 04, 2017 10:43
--- NOTE | 2017-07-04 17:04 | RADIOLOGY IMAGING REPORT ---
FACILITY: [facility] PATIENT NAME: Chela Metcalf : 1970 MR: [id number] V: [id number] EXAM DATE: ORDERING PHYSICIAN: RENAN HIGGINBOTHAM TECHNOLOGIST: Location: [facility] Patient: Chela Metcalf : 1970 Visit/Account:[id number] Date of Sevice: 07/04/2017 Exam type: PICC LINE INSERTION, PICC LINE PLACEMENT History: malnutrition Comparison: None. Findings: Informed consent was obtained. The patient's left arm was prepped and draped in usual sterile fashio n. Local anesthesia was accomplished with 1% lidocaine. Utilizing both fluoroscopic and sonographic guidance a 42 cm long trimmed 4 Swedish single lumen power PICC was inserted via the patent left brac hial vein with the distal tip resting in superior vena cava. The PICC line was flushed with 5 mL of saline flush. Proximal portion PICC line was adhered the patient's arm the sterile dressing. The so nographic images were saved to PACS. The procedure was accomplished without apparent complication. The fluoroscopy dose area product was 32.98 micro-Vasquez per meter squared IMPRESSION: 1. Successful placement of a 42 cm long trimmed 4 Swedish single lumen power PICC inserted via the pa tent left brachial vein with the distal tip resting in superior vena cava. Report Dictated By: Cordelia Hung MD at 07/04/2017 4:58 PM Report E-Signed By: Cordelia Hung MD at 07/04/2017 5:00 PM WSN:[email or web address]
--- NOTE | 2017-07-04 17:04 | RADIOLOGY IMAGING REPORT ---
FACILITY: [facility] PATIENT NAME: Chela Metcalf : 1970 MR: [id number] V: [id number] EXAM DATE: ORDERING PHYSICIAN: RENAN HIGGINBOTHAM TECHNOLOGIST: Location: [facility] Patient: Chela Metcalf : 1970 Visit/Account:[id number] Date of Sevice: 07/04/2017 Exam type: PICC LINE INSERTION, PICC LINE PLACEMENT History: malnutrition Comparison: None. Findings: Informed consent was obtained. The patient's left arm was prepped and draped in usual sterile fashio n. Local anesthesia was accomplished with 1% lidocaine. Utilizing both fluoroscopic and sonographic guidance a 42 cm long trimmed 4 Japanese single lumen power PICC was inserted via the patent left brac hial vein with the distal tip resting in superior vena cava. The PICC line was flushed with 5 mL of saline flush. Proximal portion PICC line was adhered the patient's arm the sterile dressing. The so nographic images were saved to PACS. The procedure was accomplished without apparent complication. The fluoroscopy dose area product was 32.98 micro-Vasquez per meter squared IMPRESSION: 1. Successful placement of a 42 cm long trimmed 4 Japanese single lumen power PICC inserted via the pa tent left brachial vein with the distal tip resting in superior vena cava. Report Dictated By: Cordelia Hung MD at 07/04/2017 4:58 PM Report E-Signed By: Cordelia Hung MD at 07/04/2017 5:00 PM WSN:[email or web address]
== END 2017-07-04 13:33 | disposition home health service (06) | DRG 315 ==
LOC: ER 14:34 → MED 18:07
PROVIDERS: ADMIT Internal Medicine; ATTEND Internal Medicine
PROC: 02HV33Z Insertion of Infusion Device into Superior Vena Cava, Percutaneous Approach (ICD-10-PCS; principal; 2017-07-04)
PROC: 3E0G76Z Introduction of Nutritional Substance into Upper GI, Via Natural or Artificial Opening (ICD-10-PCS; 2017-07-04)
DX: T80.212A Local infection due to central venous catheter, initial encounter (principal); N30.00 Acute cystitis without hematuria; E46 Unspecified protein-calorie malnutrition; K91.2 Postsurgical malabsorption, not elsewhere classified; K95.89 Other complications of other bariatric procedure; B96.20 Unspecified Escherichia coli [E. coli] as the cause of diseases classified elsewhere; R79.89 Other specified abnormal findings of blood chemistry; F32.9 Major depressive disorder, single episode, unspecified; L30.9 Dermatitis, unspecified; K28.7 Chronic gastrojejunal ulcer without hemorrhage or perforation; I95.89 Other hypotension; G89.29 Other chronic pain; D72.825 Bandemia; Y82.8 Other medical devices associated with adverse incidents; Z68.22 Body mass index [BMI] 22.0-22.9, adult; Z88.2 Allergy status to sulfonamides; Z88.8 Allergy status to other drugs, medicaments and biological substances; Z87.891 Personal history of nicotine dependence; Z90.49 Acquired absence of other specified parts of digestive tract
CPT/HCPCS: 36415; 36416; 36569; 71046; 76937; 80202; 81001; 82040; 82247; 82310; 82374; 82435; 82565; 82947; 82948; 83605; 84075; 84132; 84155; 84295; 84450; 84460; 84520; 85007; 85025; 85027; 86140; 87040; 87077; 87088; 87186; 96365; 96367; 99285; C1751; J0743; J1956; J2001; J2543; J3370; J7030; J7050; Q0167

== ENCOUNTER → 2017-07-01 | Outpatient (CLI) | payer MEDICARE, BC ==
[~2017-07-01] MED LIST changes: -LIDOCAINE MPF 1% 5 ML VIAL ONE; -NS(*) 0.9% 10 ML VIAL 0 ML ONE
[2017-07-01 12:30] LABS: PLATELET COUNT, AUTOMATED 116 K/uL (150-450)
== END ==
LOC: LAB 11:45
PROVIDERS: ATTEND Emergency Medicine
DX: R68.83 Chills (without fever) (principal)
CPT/HCPCS: 36415; 82040; 82247; 82310; 82374; 82435; 82565; 82947; 84075; 84132; 84155; 84295; 84450; 84460; 84520; 85007; 85027; 86140; 87040

== ENCOUNTER 2017-07-26 14:50 | Outpatient (RCR) | payer MEDICARE, BC ==
[2017-05-03 14:07] VITALS: BP 96/61
[2017-05-03 15:10] LABS: PLATELET COUNT, AUTOMATED 301 K/uL (150-450)
--- NOTE | 2017-05-03 22:44 | ONCOLOGY CONSULTATION ---
EVENT DATE: May 03, 2017 REFERRING PHYSICIAN Kevyn Briceño MD REASON FOR CONSULTATION Evaluation and management of iron deficiency anemia due to malabsorption from gastric bypass surgery. HISTORY OF PRESENT ILLNESS Patient is a 47-year-old female who has a history of gastric bypass surgery and anemia. The patient was maintained on ferrous gluconate without improvement. She had a colonoscopy done in 2015 that showed a polyp, which was removed. She denies any gastrointestinal hemorrhage currently. She had blood work done recently which showed a white count of 7.5, hemoglobin 9.2, hematocrit 28.6, platelets 261,000 with MCV 67.3. Her serum iron was 17, TIBC 410, iron saturation 4.1% and ferritin was 7. Patient is complaining of weakness, fatigue and shortness of breath all the time and feeling cold. PAST MEDICAL HISTORY 1. Iron deficiency anemia. 2. Asthma. 3. Sleep apnea. 4. GERD. 5. Depression. 6. Hypothyroidism. 7. Diabetes mellitus. PAST SURGICAL HISTORY 1. Appendectomy. 2. Cholecystectomy. 3. Gastric bypass surgery in 2007. 4. Surgery for bowel obstruction. 5. . 6. Right ankle surgery for fracture. SOCIAL HISTORY Patient is . She has children. She is on disability currently. Denies any abuse of tobacco, alcohol or drugs. FAMILY HISTORY Father had some sort of cancer with intraocular melanoma. Brother with skin cancer and paternal grandfather had kidney cancer. CURRENT MEDICATIONS 1. Triamcinolone cream for topical use. 2. Marinol 2.5 mg daily. 3. Scopolamine patch 1.5 mg every three days. 4. Ferrous gluconate 240 mg twice daily. 5. Vitamin D 50,000 units every two weeks. 6. Olanzapine 10 mg daily. 7. Oxycodone 15 mg tablet q.6 hourly. 8. Fludrocortisone acetate 0.5 mg tablet twice daily. 9. Levothyroxine 100 mcg daily. 10. Pantoprazole 40 mg daily. 11. Folic acid 1 mg daily. 12. Clonazepam 1 mg t.i.d. 13. Retinoid topical cream. 14. Thiamine vitamin B 100 mg tablet daily. 15. Vitamin D3 1000 units three tablets daily. 16. Calcium 200 mg tablet 1 mg twice daily. 17. Fluoxetine 20 mg capsule two tablets daily. 18. Sucralfate 1 g twice daily. 19. Vitamin B12 shots 1000 mcg every two weeks. ALLERGIES: SULFA, which caused hives. NSAIDs. REVIEW OF SYSTEMS CONSTITUTIONAL: Patient is feeling cold all the time. HEENT: Ears: No tinnitus or hearing problem. Nose: She has nasal discharge. No sore throat or mouth ulcers. Eyes: No diplopia or visual changes. RESPIRATORY: She has shortness of breath. CARDIOVASCULAR: No chest pain, orthopnea, or paroxysmal nocturnal dyspnea (PND) . No edema. No palpitations. GASTROINTESTINAL: She has nausea and vomiting and is on the scopolamine patch for that. She is having also feeding tube because of her poor nutrition from her gastric bypass surgery. She had constipation. She had also a marginal ulcer at the site of her surgery, with some bleeding sometimes. MUSCULOSKELETAL: She has pain all over her joints. NEUROLOGICALLY: She has tingling and numbness mainly in the left hard, and she has also intermittent headaches. HEMATOLOGIC: She is extremely weak, tired and fatigued. PHYSICAL EXAMINATION GENERAL: Looks stable. Well-developed, well-nourished, and in no acute distress. VITAL SIGNS: Blood pressure 96/61, pulse 100 per minute, respirations 16 per minute, temperature 97, pulse oximetry 98% on room air. HEENT: Head: Atraumatic. No sinus tenderness to palpation. Eyes: No icterus or conjunctivitis. Mouth and throat: No oral thrush or mucositis. NECK: Supple. No cervical or supraclavicular lymphadenopathy. LUNGS: Clear to auscultation and percussion bilaterally. HEART: Regular rate and rhythm. No gallops, murmurs, clicks or rubs. ABDOMEN: The feeding tube is noted and working well. EXTREMITIES: No cyanosis, clubbing or edema. LYMPHATICS: No peripheral lymphadenopathy. NEUROLOGICAL: Conscious, alert and oriented times three. No focal motor or sensory deficits. PSYCHIATRIC: Mood and affect appear normal. SKIN: No skin rash, bruise or purpuric eruption. ASSESSMENT 1. Iron deficiency anemia due to malabsorption from her gastric bypass surgery. I do not believe her oral iron supplementation will correct her iron deficiency, and for this reason I am planning to treat her with intravenous iron supplementation in the form of Injectafer 750 mg intravenously weekly for two weeks. I am planning to check her CBC and iron studies with ferritin prior to starting her iron, and I will see her in three months from now with CBC, iron studies with ferritin at that time. I spent a long time with the patient and her explaining those issues, and she is agreeable with the plan of management. 2. Gastric bypass surgery with malabsorption secondary to it. PLAN 1. Injectafer 750 mg intravenous infusion weekly for two weeks. 2. Check CBC, iron studies with ferritin today. 3. Patient to return in three months with CBC, iron studies with ferritin. 4. Patient is to contact us for any new concerns or complaints. LIDAD
[2017-06-21 09:56] VITALS: BP 100/79
[2017-06-21 10:46] LABS: PLATELET COUNT, AUTOMATED 215 K/uL (150-450)
[2017-07-15 12:03] LABS: PLATELET COUNT, AUTOMATED 418 K/uL (150-450)
[2017-07-15 12:24] VITALS: BP 96/66
[2017-07-22 15:55] VITALS: BP 99/68
[2017-07-22 15:57] LABS: PLATELET COUNT, AUTOMATED 204 K/uL (150-450)
[~2017-07-26] VITALS: Ht 167.6 cm; Wt 61.3 kg
[2017-07-26 15:07] VITALS: BP 95/67
[2017-07-26 15:33] LABS: PLATELET COUNT, AUTOMATED 142 K/uL (150-450)
== END 2017-07-31 ==
LOC: SPU 14:50
PROVIDERS: ATTEND Internal Medicine Hematology
DX: D50.8 Other iron deficiency anemias (principal); Z98.84 Bariatric surgery status; R53.1 Weakness; R53.83 Other fatigue; R06.02 Shortness of breath; Z79.899 Other long term (current) drug therapy
CPT/HCPCS: 36592; 82728; 83540; 83550; 83735; 84100; 85025; G0463; 82040; 82247; 82310; 82374; 82435; 82565; 82947; 84075; 84132; 84155; 84295; 84450; 84460; 84520; 99202

== ENCOUNTER → 2017-09-23 | Outpatient (CLI) | payer MEDICARE, BC ==
[~2017-09-23] MED LIST changes: -RANI-324 PO; +RANI-366 PO
--- NOTE | 2017-09-23 14:33 | RADIOLOGY IMAGING REPORT ---
FACILITY: [facility] PATIENT NAME: Chela Metcalf : 1970 MR: [id number] V: [id number] EXAM DATE: ORDERING PHYSICIAN: RENAN MADISON TECHNOLOGIST: Location: [facility] [place] Patient: Chela Metcalf : 1970 Visit/Account:[id number] Date of Sevice: 09/23/2017 EXAMINATION: Chest radiographs 2 views HISTORY: Status post post PICC central line placement, headache. COMPARISON: Chest radiographs from 07/01/2017 and 07/04/2017. FINDINGS: PA and lateral views of the chest are submitted. Lines/tubes: The left PICC line tip overlies the cavoatrial junction. There are no coils in the vis ualized line. Lungs/pleura: No focal consolidation or pleural effusion. Heart: Negative. Mediastinum: Negative. Bony structures/body wall: Negative. IMPRESSION: 1. Well-positioned left PICC line, unchanged. 2. No radiographic evidence of acute cardiopulmonary disease. Report Dictated By: Jany Lui MD at 09/23/2017 2:28 PM Report E-Signed By: Jany Lui MD at 09/23/2017 2:30 PM WSN:[email or web address]
== END ==
LOC: RAD 13:44
PROVIDERS: ATTEND Surgery
DX: Z95.828 Presence of other vascular implants and grafts (principal)
CPT/HCPCS: 71046

== ENCOUNTER 2017-09-29 15:15 | Emergency (ER) | payer MEDICARE, BC ==
--- NOTE | 2017-09-29 15:31 | ER Report ---
History and Physical Time Seen By : 15:20 Hx. of Stated Complaint: "I THINK MY PICC LINE IS INFECTED". REPORTS PAIN AND TACHYCARDIA WHEN FLUSHING PICC LINE. ALSO C/O HEADACHE, FEVER, AND DIARRHEA. HPI/ROS CHIEF COMPLAINT: I THINK MY PICC LINE IS INFECTED. HISTORY OF PRESENT ILLNESS: Pt is concerned that she has a picc line infection. Pt states that she uses her picc line for tpn due to she can not eat solids. Pt states that she has been having pain at the picc line site and has not felt well since last saturday. Dr. Recinos ordered an xray which showed the picc was in good position on 09/23. Pt states symptoms worse when she tries to use it, gets pain at site and headache. pt statse she had a temp yesterday of 101. Pt does have n/v but that is normal for her. Pt has had some loose stools which is not her usual. Pt denies chest pain. no cough. no sob. pt c/o of epigastric pain. pt has had multiple ulcers in her stomach in the past with strictures which has led to her eating via tpn. REVIEW OF SYSTEMS: Constitutional: + fever, no chills. Eyes: No discharge. ENT: No sore throat. Cardiovascular: No chest pain, no palpitations. Respiratory: No cough, no shortness of breath. Gastrointestinal: + abdominal pain, no vomiting. Genitourinary: No hematuria. Musculoskeletal: No back pain. Skin: No rashes. Neurological: + headache. Allergies: Coded Allergies: Sulfa (Sulfonamide Antibiotics) (Verified Allergy, Mild, HIVES, 09/29/17) NSAIDS (Non-Steroidal Anti-Inflamma (Unverified Allergy, Unknown, 09/29/17) Home Meds Active Scripts Ferrous Gluconate (FERROUS GLUCONATE) 240 Mg Tablet, 240 MG PO TID, #90 TAB 5 Refills Prov:TREY HOWARD MD 05/01/17 Scopolamine (Scopolamine) 1 Mg/3 Day Patch.td.3, 1 MG TD Q72H, #10 PATCH.72H Prov:TREY HOWARD MD 02/28/17 Ergocalciferol (Vitamin D2) (VITAMIN D2) 50,000 Unit Capsule, 15435 UNIT PO Q2WK , #2 CAPSULE 6 Refills Prov:TREY HOWARD MD 02/28/17 Fludrocortisone Acetate (FLUDROCORTISONE ACETATE) 0.1 Mg Tablet, 0.1 MG PO BID, #60 TAB 3 Refills Prov:TREY HOWARD MD 11/21/16 Levothyroxine Sodium (LEVOTHYROXINE SODIUM) 100 Mcg Tablet, 100 MCG PO QDAY for 30 Days, #30 TAB 6 Refills Prov:TREY HOWARD MD 10/08/16 Pantoprazole Sodium (PANTOPRAZOLE SODIUM) 40 Mg Tablet.dr, 1 TAB PO BID, #60 TAB.SR 6 Refills Prov:TREY HOWARD MD 10/04/16 Tretinoin 0.1% Top Cream (RETIN-A 0.1% TOP CREAM) 45 Gm Cream..g., 45 GM TP BID , #1 BOTTLE 1 Refill .025% Prov:TREY HOWARD MD 04/20/16 Cyanocobalamin (Vitamin B-12) (CYANOCOBALAMIN INJECTION) 1,000 Mcg/1 Ml Vial, 1000 MCG IJ Q30D, #12 VIAL 1 Refill Prov:RENAN MADISON MD 01/20/14 Reported Medications Dronabinol (MARINOL) 2.5 Mg Capsule, 2.5 MG PO BID, CAPSULE 02/28/17 Olanzapine (OLANZAPINE) 10 Mg Tablet, 10 MG PO HS 11/21/16 Oxycodone Hcl 15 Mg Tab (OXYCODONE HCL 15 MG TAB) 15 Mg Tablet, 15 MG PO Q6H, TAB 11/21/16 Folic Acid (FOLIC ACID) 1 Mg Tablet, 1 MG PO QDAY, TAB 08/17/16 Clonazepam (KLONOPIN) Unknown Strength Tablet, 1 MG PO TID, TAB 06/27/16 Thiamine Mononitrate (VITAMIN B-1) 100 Mg Tablet, 100 MG PO QDAY 02/07/16 Cholecalciferol (Vitamin D3) (VITAMIN D3) 1,000 Unit Tablet, 3 UNIT PO HS, TAB 02/07/16 Calcium Citrate (CALCIUM CITRATE) 200 Mg Tablet, 1 MG PO BID 01/20/16 Fluoxetine Hcl (PROZAC) 20 Mg Capsule, 2 TAB PO QDAY, CAPSULE 10/07/15 Past Medical/Surgical History Pmhx: dm, iron def anemia, asthma, gerd, depression, migraines, pud, strictures , hypothyroid Pshx: , carlee, appy , gastric bypass. Reviewed Nurses Notes: Yes Old Medical Records Reviewed: Yes Hx Smoking: Yes Smoking Status: Former Smoker Exposure to Second Hand Smoke?: Yes Hx Substance Use Disorder: No Hx Alcohol Use: No Constitutional Vital Sign - Last 24 Hours 09/29/17 15:23 Temp 98.1 Pulse 81 Resp 16 B/P (MAP) 100/74 Pulse Ox 96 O2 Delivery Room Air Physical Exam General Appearance: The patient is alert, has no immediate need for airway protection and no signs of toxicity. Eyes: Pupils equal and round no pallor or injection, EOMI ENT: no pharyngeal erythema or exudates, Mucous membranes are moist Respiratory: There are no retractions, lungs are clear to auscultation. Cardiovascular: Regular rate and rhythm. pulses are equal and symmetrical Gastrointestinal: Abdomen is soft with epigastric tenderness, no masses, bowel sounds normal, no guarding, no rigidity or rebound Neurological: Cranial nerves II-XII grossly intact, no sensory or motor loss Skin: Warm and dry, no rashes. Musculoskeletal: Neck is supple non tender, no vertebral tenderness Extremities are nontender, non swollen and have full range of motion. DIFFERENTIAL DIAGNOSIS: After history and physical exam differential diagnosis was considered for picc line infection, pancreatitis, psbo, uti, migraine Medical Decision Making Data Points Result Diagram: 09/29/17 1548 09/29/17 1548 Laboratory Hematology Test 09/29/17 15:27 09/29/17 15:48 Urine Color Yellow Urine Clarity Slightly-cloudy Urine pH 6.0 pH (4.8-9.5) Urine Specific [place] 1.006 Urine Protein Negative mg/dL (NEGATIVE) Urine Glucose (UA) Negative mg/dL (NEGATIVE) Urine Ketones Negative mg/dL (NEGATIVE) Urine Blood Small (NEGATIVE) Urine Nitrite Positive (NEGATIVE) Urine Bilirubin Negative (NEGATIVE) Urine Urobilinogen Negative mg/dL (0.2-1.9) Urine Leukocyte Esterase Small (NEGATIVE) Urine RBC 1 /HPF (0-2/HPF) Urine WBC 12 /HPF (0-5/HPF) Urine Squamous Epithelial Cells Many /LPF (</=FEW) Urine Amorphous Crystals Few /HPF Urine Bacteria Few /HPF (NONE-FEW) Urine Mucus Few /HPF (NONE-FEW) Urine HCG, Qualitative Negative (NEGATIVE) Red Blood Count 5.02 M/uL (4.17-5.56) Mean Corpuscular Volume 87.9 fL (80.0-96.0) Mean Corpuscular Hemoglobin 30.6 pg (26.0-33.0) Mean Corpuscular Hemoglobin Concent 34.8 g/dL (32.0-36.0) Red Cell Distribution Width 17.1 % (11.5-14.5) Mean Platelet Volume 8.7 fL (7.2-11.1) Neutrophils (%) (Auto) 65.7 % (39.4-72.5) Lymphocytes (%) (Auto) 23.7 % (17.6-49.6) Monocytes (%) (Auto) 9.4 % (4.1-12.4) Eosinophils (%) (Auto) 0.9 % (0.4-6.7) Basophils (%) (Auto) 0.3 % (0.3-1.4) Nucleated RBC Relative Count (auto) 0.1 /100WBC Neutrophils # (Auto) 4.5 K/uL (2.0-7.4) Lymphocytes # (Auto) 1.6 K/uL (1.3-3.6) Monocytes # (Auto) 0.6 K/uL (0.3-1.0) Eosinophils # (Auto) 0.1 K/uL (0.0-0.5) Basophils # (Auto) 0.0 K/uL (0.0-0.1) Nucleated RBC Absolute Count (auto) 0.00 K/uL Erythrocyte Sedimentation Rate 19 mm/HOUR (0-20) Sodium Level 139 mmol/L (137-145) Potassium Level 3.5 mmol/L (3.5-5.0) Chloride Level 102 mmol/L (98-107) Carbon Dioxide Level 26 mmol/L (22-31) Blood Urea Nitrogen 6 mg/dl (7-18) Creatinine 0.80 mg/dl (0.52-1.04) Glomerular Filtration Rate Calc > 60.0 Random Glucose 92 mg/dl (75-110) Lactate 0.9 mmol/L (0.7-2.1) Calcium Level 8.9 mg/dl (8.4-10.2) Total Bilirubin 0.6 mg/dl (0.2-1.3) Aspartate Amino Transf (AST/SGOT) 19 U/L (0-35) Alanine Aminotransferase (ALT/SGPT) 29 U/L (0-56) Alkaline Phosphatase 105 U/L (0-126) Total Protein 7.3 gm/dl (6.3-8.2) Albumin 3.7 g/dl (3.5-5.0) Lipase 55 U/L (23-300) Chemistry Test 09/29/17 15:27 09/29/17 15:48 Urine Color Yellow Urine Clarity Slightly-cloudy Urine pH 6.0 pH (4.8-9.5) Urine Specific [place] 1.006 Urine Protein Negative mg/dL (NEGATIVE) Urine Glucose (UA) Negative mg/dL (NEGATIVE) Urine Ketones Negative mg/dL (NEGATIVE) Urine Blood Small (NEGATIVE) Urine Nitrite Positive (NEGATIVE) Urine Bilirubin Negative (NEGATIVE) Urine Urobilinogen Negative mg/dL (0.2-1.9) Urine Leukocyte Esterase Small (NEGATIVE) Urine RBC 1 /HPF (0-2/HPF) Urine WBC 12 /HPF (0-5/HPF) Urine Squamous Epithelial Cells Many /LPF (</=FEW) Urine Amorphous Crystals Few /HPF Urine Bacteria Few /HPF (NONE-FEW) Urine Mucus Few /HPF (NONE-FEW) Urine HCG, Qualitative Negative (NEGATIVE) White Blood Count 6.8 k/uL (4.5-11.0) Red Blood Count 5.02 M/uL (4.17-5.56) Hemoglobin 15.3 g/dL (12.0-16.0) Hematocrit 44.1 % (34.0-47.0) Mean Corpuscular Volume 87.9 fL (80.0-96.0) Mean Corpuscular Hemoglobin 30.6 pg (26.0-33.0) Mean Corpuscular Hemoglobin Concent 34.8 g/dL (32.0-36.0) Red Cell Distribution Width 17.1 % (11.5-14.5) Platelet Count 273 K/uL (150-450) Mean Platelet Volume 8.7 fL (7.2-11.1) Neutrophils (%) (Auto) 65.7 % (39.4-72.5) Lymphocytes (%) (Auto) 23.7 % (17.6-49.6) Monocytes (%) (Auto) 9.4 % (4.1-12.4) Eosinophils (%) (Auto) 0.9 % (0.4-6.7) Basophils (%) (Auto) 0.3 % (0.3-1.4) Nucleated RBC Relative Count (auto) 0.1 /100WBC Neutrophils # (Auto) 4.5 K/uL (2.0-7.4) Lymphocytes # (Auto) 1.6 K/uL (1.3-3.6) Monocytes # (Auto) 0.6 K/uL (0.3-1.0) Eosinophils # (Auto) 0.1 K/uL (0.0-0.5) Basophils # (Auto) 0.0 K/uL (0.0-0.1) Nucleated RBC Absolute Count (auto) 0.00 K/uL Erythrocyte Sedimentation Rate 19 mm/HOUR (0-20) Glomerular Filtration Rate Calc > 60.0 Lactate 0.9 mmol/L (0.7-2.1) Calcium Level 8.9 mg/dl (8.4-10.2) Total Bilirubin 0.6 mg/dl (0.2-1.3) Aspartate Amino Transf (AST/SGOT) 19 U/L (0-35) Alanine Aminotransferase (ALT/SGPT) 29 U/L (0-56) Alkaline Phosphatase 105 U/L (0-126) Total Protein 7.3 gm/dl (6.3-8.2) Albumin 3.7 g/dl (3.5-5.0) Lipase 55 U/L (23-300) Urinalysis Test 09/29/17 15:27 Urine Color Yellow Urine Clarity Slightly-cloudy Urine pH 6.0 pH (4.8-9.5) Urine Specific [place] 1.006 Urine Protein Negative mg/dL (NEGATIVE) Urine Glucose (UA) Negative mg/dL (NEGATIVE) Urine Ketones Negative mg/dL (NEGATIVE) Urine Blood Small (NEGATIVE) Urine Nitrite Positive (NEGATIVE) Urine Bilirubin Negative (NEGATIVE) Urine Urobilinogen Negative mg/dL (0.2-1.9) Urine Leukocyte Esterase Small (NEGATIVE) Urine RBC 1 /HPF (0-2/HPF) Urine WBC 12 /HPF (0-5/HPF) Urine Squamous Epithelial Cells Many /LPF (</=FEW) Urine Amorphous Crystals Few /HPF Urine Bacteria Few /HPF (NONE-FEW) Urine Mucus Few /HPF (NONE-FEW) Urine HCG, Qualitative Negative (NEGATIVE) EKG/Imaging Imaging Ct is stable ED Course/Re-evaluation Clinical Indication for ER IV: Hydration, IV Access ED Course 09/29/2017 4:12:03 pm Used her picc line to obtain one blood culture. Pt had no pain or headache when we jazmyn the culture or when we flushed to line. Remainder of blood work and cultures were obtained via peripheral line. ' 09/29/2017 4:23:12 pm Pts blood work is stable. Normal esr, cbc and lactate. electrolytes are also stable. 09/29/2017 5:50:19 pm Pt with uti per ua. sent off for culture. IV dose of abx started. will d/c on abx while awaiting cultures. Pt is to call pcp to obtain out patient change of her picc line. Pt picc line flushed twice here in the ed without difficulty or pain. Decision to Disposition Date: September 29, 2017 Decision to Disposition Time: 17:50 Depart Departure Latest Vital Signs Vital Signs Date Time Temp Pulse Resp B/P (MAP) Pulse Ox O2 Delivery O2 Flow Rate FiO2 09/29/17 15:23 98.1 81 16 100/74 96 Room Air Impression: Primary Impression: UTI (urinary tract infection) Additional Impression: PIC line (peripherally inserted central catheter) flush Condition: Improved Disposition: HOME OR SELF-CARE Referrals: TREY HOWARD MD (PCP) 2 Days RENAN MADISON MD New Scripts Cefuroxime Axetil (CEFUROXIME) 500 Mg Tablet 500 MG PO BID, #14 TAB Prov: JOSÉ LUIS CALHOUN DO 09/29/17 Patient Instructions: Urinary Tract Infection in Women (DC) Additional Instructions: Follow up with your family doctor on Saturday. To arrange a time for your picc to be changed as out patient. Your blood work was stable but your urine showed an infection which we are treating. We did send off blood cultures and urine culture. If bacteria grows in your blood we will call you. You have an antibiotic, ceftin, waiting at [facility]. Ceftin twice a day. Return for any concerns. Problem Qualifiers Primary Impression: UTI (urinary tract infection) Urinary tract infection type: site unspecified Hematuria presence: without hematuria Qualified Codes: N39.0 - Urinary tract infection, site not specified JOSÉ LUIS CALHOUN DO September 29, 2017 15:31
[2017-09-29] MEDS ORDERED: NS(*) 0.9% 1000 ML BAG 1,000 ML IV ONE (15:35)
[2017-09-29] MEDS ORDERED: ONDANSETRON 4 MG/2 ML VIAL IVP ONE (15:35)
[2017-09-29] MEDS ORDERED: fentaNYL CITR 100 MCG/2 ML AMP IVP ONE (15:35)
[2017-09-29 15:57] LABS: PLATELET COUNT, AUTOMATED 273 K/uL (150-450)
--- NOTE | 2017-09-29 17:29 | RADIOLOGY IMAGING REPORT ---
[place] [facility] [place] Chela Metcalf : 1970 MR: [id number] V: [id number] EXAM DATE: ORDERING PHYSICIAN: JOSÉ LUIS CALHOUN TECHNOLOGIST: Location: [facility] [place] Patient: Chela Metcalf : 1970 Visit/Account:[id number] Date of Sevice: 09/29/2017 HEAD W/O CONTRAST COMPARISON: 07/04/2016 HISTORY: HEADACHE. TECHNIQUE: Noncontrast axial CT brain with coronal and sagittal reformats. One of the following dose optimization techniques was utilized in the performance of this exam: automated exposure control; a djustment of the mA and/or kV according to patient size; or use of iterative reconstruction technique . Specific details can be referenced in the facility's radiology CT exam operational policy. CONTRAST: None. CT BRAIN FINDINGS: CSF SPACES: Ventricles, cisterns, and sulci are appropriate for age. No hydrocephalus, extra-axial hemorrhage, or mass. No midline shift. CEREBRUM: No edema, hemorrhage, mass, acute infarction, or significant atrophy. Normal morphology a nd density. CEREBELLUM: No edema, hemorrhage, mass, acute infarction, or significant atrophy. Tonsils are not l ow-lying. BRAINSTEM: No edema, hemorrhage, mass, acute infarction, or significant atrophy. Normal morphology and density. CALVARIUM: No mass or other significant visible lesion. Mastoid air cells are normally pneumatized. SINUSES: Limited views demonstrate no significant mucosal thickening or fluid. ORBITS: Limited views are unremarkable. OTHER: Negative. IMPRESSION: Unremarkable brain. No acute intracranial process or cause for symptoms. Report Dictated By: Elton Paez at 09/29/2017 5:24 PM Report E-Signed By: Elton Paez at 09/29/2017 5:26 PM WSN:[id number]
[2017-09-29] MEDS ORDERED: NS(*) 0.9% 500 ML BAG 500 ML IV ONE (17:30)
[2017-09-29] MEDS ORDERED: cefTRIAXone 1 GM VIAL IVP ONE (17:30)
[2017-09-29] MEDS ORDERED: CEFU500T10 PO (17:57)
[2017-09-29 18:00] VITALS: BP 95/76
[2017-09-29] MEDS ORDERED: CEFUROXIME AXETIL 250 MG TAB PO ONE (18:00)
== END 2017-09-29 18:06 | disposition home or self-care (01) ==
LOC: ER 15:30
DX: N39.0 Urinary tract infection, site not specified (principal)
CPT/HCPCS: 70450; 81001; 81025; 83605; 83690; 85025; 85651; 87040; 87077; 87088; 87186; 96361; 96374; 96375; 99284; A9270; J0696; J2405; J3010; J7030; J7040; 82040; 82247; 82310; 82374; 82435; 82565; 82947; 84075; 84132; 84155; 84295; 84450; 84460; 84520

== ENCOUNTER → 2017-10-04 | Outpatient (CLI) | payer MEDICARE, BC ==
[~2017-10-04] MED LIST changes: +CEFU500T10 PO
--- NOTE | 2017-10-04 15:19 | RADIOLOGY IMAGING REPORT ---
FACILITY: [facility] - [place] PATIENT NAME: Chela Metcalf : 1970 MR: [id number] V: [id number] EXAM DATE: ORDERING PHYSICIAN: JACQUELINE STRONG TECHNOLOGIST: Location: [facility] Patient: Chela Metcalf : 1970 Visit/Account:[id number] Date of Sevice: 10/04/2017 Exam type: PICC LINE INSERTION, PICC LINE PLACEMENT History: Need for TPN Comparison: None. Findings: Informed consent was obtained. The patient's right arm was prepped and draped in usual sterile fashi on. Local anesthesia, was accomplished with 1% lidocaine. Utilizing both sonographic and fluoroscop ic guidance a 33 cm long trimmed 4 [place] single lumen power PICC was inserted via the patent right b rachial vein with the distal tip resting in the superior vena cava. The PICC line was flushed with 5 mL of saline flush. Proximal portion PICC line was adhered to the patient's arm the sterile dressin g. The sonographic images were saved to PACS. The procedure was accomplished without apparent corti cation. The fluoroscopy dose area product was 3.56 micro-Vasquez per meter squared IMPRESSION: 1. Successful placement of a 33 cm long trimmed 4 [place] single lumen power PICC inserted via the pat ent right brachial vein with the distal tip resting in superior vena cava Report Dictated By: Cordelia Hung MD at 10/04/2017 3:11 PM Report E-Signed By: Cordelia Hung MD at 10/04/2017 3:15 PM WSN:[id number]
--- NOTE | 2017-10-04 15:20 | RADIOLOGY IMAGING REPORT ---
FACILITY: [facility] - [place] PATIENT NAME: Chela Metcalf : 1970 MR: [id number] V: [id number] EXAM DATE: ORDERING PHYSICIAN: JACQUELINE STRONG TECHNOLOGIST: [place] [facility] [place]a Metcalf : 1970 Visit/Account:[id number] Date of Sevice: 10/04/2017 Exam type: PICC LINE INSERTION, PICC LINE PLACEMENT History: Need for TPN Comparison: None. Findings: Informed consent was obtained. The patient's right arm was prepped and draped in usual sterile fashi on. Local anesthesia, was accomplished with 1% lidocaine. Utilizing both sonographic and fluoroscop ic guidance a 33 cm long trimmed 4 [place]olan single lumen power PICC was inserted via the patent right b rachial vein with the distal tip resting in the superior vena cava. The PICC line was flushed with 5 mL of saline flush. Proximal portion PICC line was adhered to the patient's arm the sterile dressin g. The sonographic images were saved to PACS. The procedure was accomplished without apparent corti cation. The fluoroscopy dose area product was 3.56 micro-Vasquez per meter squared IMPRESSION: 1. Successful placement of a 33 cm long trimmed 4 [place]olan single lumen power PICC inserted via the pat ent right brachial vein with the distal tip resting in superior vena cava Report Dictated By: Cordelia Hung MD at 10/04/2017 3:11 PM Report E-Signed By: Cordelia Hung MD at 10/04/2017 3:15 PM WSN:[id number]
== END ==
LOC: RAD 00:04
PROVIDERS: ATTEND Surgery
DX: E43 Unspecified severe protein-calorie malnutrition (principal); R62.7 Adult failure to thrive
CPT/HCPCS: 36569; 76937; C1751

== ENCOUNTER 2017-10-17 10:30 | Outpatient (RCR) | payer MEDICARE, BC ==
[2017-08-05 17:02] LABS: PLATELET COUNT, AUTOMATED 155 K/uL (150-450)
[2017-08-09 08:11] VITALS: BP 100/65
--- NOTE | 2017-08-09 16:06 | ONCOLOGY FOLLOW UP NOTE ---
EVENT DATE: August 09, 2017 DIAGNOSES 1. Iron deficiency anemia due to malabsorption. 2. Gastric bypass surgery with malabsorption. CHIEF COMPLAINT Patient is here today for followup of her iron deficiency anemia due to her gastric bypass surgery with malabsorption. HEMATOLOGY HISTORY Patient is a 47-year-old female who has a history of gastric bypass surgery and anemia. The patient was maintained on ferrous gluconate without improvement. She had a colonoscopy done in 2015 that showed a polyp, which was removed. She denies any gastrointestinal hemorrhage currently. She had blood work done recently which showed a white count of 7.5, hemoglobin 9.2, hematocrit 28.6, platelets 261,000 with MCV 67.3. Her serum iron was 17, TIBC 410, iron saturation 4.1% and ferritin was 7. Patient is complaining of weakness, fatigue and shortness of breath all the time and feeling cold. HISTORY OF PRESENT ILLNESS Patient is here today for followup of her iron deficiency due to malabsorption from gastric bypass surgery. She is complaining of dry cough, nausea and vomiting all the time. She has also aches all over her joints. She has also some tingling and numbness in the feet and constant headache. She is weak, tired and fatigued, but her fatigue got much better after Injectafer infusions. PAST MEDICAL HISTORY 1. Iron deficiency anemia. 2. Asthma. 3. Sleep apnea. 4. GERD. 5. Depression. 6. Hypothyroidism. 7. Diabetes mellitus. PAST SURGICAL HISTORY 1. Appendectomy. 2. Cholecystectomy. 3. Gastric bypass surgery in 2007. 4. Surgery for bowel obstruction. 5. . 6. Right ankle surgery for fracture. SOCIAL HISTORY Patient is . She has children. She is on disability currently. Denies any abuse of tobacco, alcohol or drugs. FAMILY HISTORY Father had some sort of cancer with intraocular melanoma. Brother with skin cancer and paternal grandfather had kidney cancer. CURRENT MEDICATIONS 1. Triamcinolone cream for topical use. 2. Marinol 2.5 mg daily. 3. Scopolamine patch 1.5 mg every three days. 4. Ferrous gluconate 240 mg twice daily. 5. Vitamin D 50,000 units every two weeks. 6. Olanzapine 10 mg daily. 7. Oxycodone 15 mg tablet q.6 hourly. 8. Fludrocortisone acetate 0.5 mg tablet twice daily. 9. Levothyroxine 100 mcg daily. 10. Pantoprazole 40 mg daily. 11. Folic acid 1 mg daily. 12. Clonazepam 1 mg t.i.d. 13. Retinoid topical cream. 14. Thiamine vitamin B 100 mg tablet daily. 15. Vitamin D3 1000 units three tablets daily. 16. Calcium 200 mg tablet 1 mg twice daily. 17. Fluoxetine 20 mg capsule two tablets daily. 18. Sucralfate 1 g twice daily. 19. Vitamin B12 shots 1000 mcg every two weeks. ALLERGIES: SULFA, which caused hives. NSAIDs. REVIEW OF SYSTEMS CONSTITUTIONAL: Patient is feeling cold all the time. HEENT: Ears: No tinnitus or hearing problem. Nose: She has nasal discharge. No sore throat or mouth ulcers. Eyes: No diplopia or visual changes. RESPIRATORY: She has dry cough. CARDIOVASCULAR: No chest pain, orthopnea, or paroxysmal nocturnal dyspnea (PND) . No edema. No palpitations. GASTROINTESTINAL: She has nausea and vomiting all the time. MUSCULOSKELETAL: She has aches all over her joints. NEUROLOGICALLY: She has tingling and numbness in the feet. She has also constant headache. HEMATOLOGIC: She is weak, tired and fatigued. PHYSICAL EXAMINATION GENERAL: Looks stable. Well-developed, well-nourished, and in no acute distress. VITAL SIGNS: Blood pressure 100/65, pulse 93 per minute, respirations 16 per minute, temperature 97.4, pulse oximetry 92% on room air. HEENT: Head: Atraumatic. No sinus tenderness to palpation. Eyes: No icterus or conjunctivitis. Mouth and throat: No oral thrush or mucositis. NECK: Supple. No cervical or supraclavicular lymphadenopathy. LUNGS: Clear to auscultation and percussion bilaterally. HEART: Regular rate and rhythm. No gallops, murmurs, clicks or rubs. ABDOMEN: The feeding tube is noted and working well. EXTREMITIES: No cyanosis, clubbing or edema. LYMPHATICS: No peripheral lymphadenopathy. NEUROLOGICAL: Conscious, alert and oriented times three. No focal motor or sensory deficits. PSYCHIATRIC: Mood and affect appear normal. SKIN: No skin rash, bruise or purpuric eruption. DIAGNOSTIC DATA CBC shows white count 12.1, hemoglobin 16, hematocrit 46.5, platelets 155,000. Chem panel totally normal, except sodium 136. Iron studies show serum iron 57, TIBC 296, iron saturation 19.3% and ferritin 15, which is up from 4. ASSESSMENT 1. Iron deficiency anemia due to malabsorption from her gastric bypass surgery. Patient received Injectafer infusions in May 2017. Her ferritin improved from 4 to 15 and the patient got much better energy after that. Her current iron studies are within the normal range, but ferritin at the low normal level at 15. I am planning to see her again in two months with CBC, iron studies with ferritin, and if the patient drops her ferritin below the normal range I am planning to treat her again with Injectafer. I explained that to the patient. She is agreeable with the plan of management. 2. Gastric bypass surgery with malabsorption due to it. PLAN 1. Continue followup. 2. Patient to return in two months with CBC, iron studies with ferritin. 3. Patient is to contact us for any new concerns or complaints. CORET[place]
[2017-08-15 13:27] LABS: PLATELET COUNT, AUTOMATED 227 K/uL (150-450)
[2017-08-15 13:34] VITALS: BP 95/67
[2017-08-23 16:26] LABS: PLATELET COUNT, AUTOMATED 165 K/uL (150-450)
[2017-09-27 15:40] LABS: PLATELET COUNT, AUTOMATED 228 K/uL (150-450)
[2017-10-05 12:37] VITALS: BP 99/63
[2017-10-16 12:26] LABS: PLATELET COUNT, AUTOMATED 174 K/uL (150-450)
[2017-10-16 12:36] VITALS: BP 95/60
[2017-10-17 10:39] VITALS: BP 94/60
[2017-10-17] MEDS ORDERED: OXYC-830 PO (10:44)
--- NOTE | 2017-10-17 15:18 | ONCOLOGY FOLLOW UP NOTE ---
EVENT DATE: October 17, 2017 DIAGNOSES 1. Iron deficiency anemia due to malabsorption. 2. Gastric bypass surgery with malabsorption. CHIEF COMPLAINT Patient is here today for followup of her iron deficiency anemia due to her gastric bypass surgery with malabsorption. HEMATOLOGY HISTORY Patient is a 47-year-old female who has a history of gastric bypass surgery and anemia. The patient was maintained on ferrous gluconate without improvement. She had a colonoscopy done in 2015 that showed a polyp, which was removed. She denies any gastrointestinal hemorrhage currently. She had blood work done recently which showed a white count of 7.5, hemoglobin 9.2, hematocrit 28.6, platelets 261,000 with MCV 67.3. Her serum iron was 17, TIBC 410, iron saturation 4.1% and ferritin was 7. Patient is complaining of weakness, fatigue and shortness of breath all the time and feeling cold. HISTORY OF PRESENT ILLNESS Patient is here today for followup of her iron deficiency anemia due to malabsorption from gastric bypass surgery. She is complaining of occasional nausea and vomiting. She had a urinary tract infection recently. She has occasional migraine headache. PAST MEDICAL HISTORY 1. Iron deficiency anemia. 2. Asthma. 3. Sleep apnea. 4. GERD. 5. Depression. 6. Hypothyroidism. 7. Diabetes mellitus. PAST SURGICAL HISTORY 1. Appendectomy. 2. Cholecystectomy. 3. Gastric bypass surgery in 2007. 4. Surgery for bowel obstruction. 5. . 6. Right ankle surgery for fracture. SOCIAL HISTORY Patient is . She has children. She is on disability currently. Denies any abuse of tobacco, alcohol or drugs. FAMILY HISTORY Father had some sort of cancer with intraocular melanoma. Brother with skin cancer and paternal grandfather had kidney cancer. CURRENT MEDICATIONS 1. Triamcinolone cream for topical use. 2. Marinol 2.5 mg daily. 3. Scopolamine patch 1.5 mg every three days. 4. Ferrous gluconate 240 mg twice daily. 5. Vitamin D 50,000 units every two weeks. 6. Olanzapine 10 mg daily. 7. Oxycodone 15 mg tablet q.6 hourly. 8. Fludrocortisone acetate 0.5 mg tablet twice daily. 9. Levothyroxine 100 mcg daily. 10. Pantoprazole 40 mg daily. 11. Folic acid 1 mg daily. 12. Clonazepam 1 mg t.i.d. 13. Retinoid topical cream. 14. Thiamine vitamin B 100 mg tablet daily. 15. Vitamin D3 1000 units three tablets daily. 16. Calcium 200 mg tablet 1 mg twice daily. 17. Fluoxetine 20 mg capsule two tablets daily. 18. Sucralfate 1 g twice daily. 19. Vitamin B12 shots 1000 mcg every two weeks. ALLERGIES: SULFA, which caused hives. NSAIDs. REVIEW OF SYSTEMS CONSTITUTIONAL: Patient is feeling cold all the time. HEENT: Ears: No tinnitus or hearing problem. Nose: She has nasal discharge. Mouth: No sore throat or mouth ulcers. Eyes: No diplopia or visual changes. RESPIRATORY: She has dry cough. CARDIOVASCULAR: No chest pain, orthopnea, or paroxysmal nocturnal dyspnea (PND) . No edema. No palpitations. GASTROINTESTINAL: Patient has nausea and vomiting. GENITOURINARY: She has recovered from UTI. MUSCULOSKELETAL: She has aches all over her joints. NEUROLOGICALLY: She has occasional migraine headache. HEMATOLOGIC: She is weak, tired and fatigued. PHYSICAL EXAMINATION GENERAL: Looks stable. Well-developed, well-nourished, and in no acute distress. VITAL SIGNS: Blood pressure 94/60, pulse 72 per minute, respirations 16 per minute, temperature 97, pulse oximetry 94% on room air. HEENT: Head: Atraumatic. No sinus tenderness to palpation. Eyes: No icterus or conjunctivitis. Mouth and Throat: No oral thrush or mucositis. NECK: Supple. No cervical or supraclavicular lymphadenopathy. LUNGS: Clear to auscultation and percussion bilaterally. HEART: Regular rate and rhythm. No gallops, murmurs, clicks or rubs. ABDOMEN: The feeding tube is noted and working well. EXTREMITIES: No cyanosis, clubbing or edema. LYMPHATICS: No peripheral lymphadenopathy. NEUROLOGICAL: Conscious, alert and oriented times three. No focal motor or sensory deficits. PSYCHIATRIC: Mood and affect appear normal. SKIN: No skin rash, bruise or purpuric eruption. DIAGNOSTIC DATA CBC shows white count 7.6, hemoglobin 14.1, hematocrit 41.1, platelets 174,000. Serum iron 95, TIBC 319, iron saturation 29.8%, ferritin 29. ASSESSMENT 1. Iron deficiency anemia due to malabsorption from her gastric bypass surgery. Patient received Injectafer infusions in May 2017. Her ferritin improved from 4 to 15, and currently it is 29. The rest of the iron studies are within the normal range with iron saturation 29.8%. I am planning to continue followup. I will see the patient again in three months from now with CBC, iron studies with ferritin. If the patient would develop iron deficiency in the future, I am planning to treat her again with Injectafer. 2. Gastric bypass surgery with malabsorption due to it. PLAN 1. Continue followup. 2. Patient to return in three months with CBC, iron studies with ferritin. 3. Patient is to contact us for any new concerns or complaints. [place]
== END 2017-10-30 ==
LOC: ONC 10:30
PROVIDERS: ATTEND Internal Medicine Hematology
DX: D50.8 Other iron deficiency anemias (principal); T85.598A Other mechanical complication of other gastrointestinal prosthetic devices, implants and grafts, initial encounter; R62.7 Adult failure to thrive; K29.70 Gastritis, unspecified, without bleeding; K92.2 Gastrointestinal hemorrhage, unspecified; E46 Unspecified protein-calorie malnutrition; Z98.84 Bariatric surgery status; K90.9 Intestinal malabsorption, unspecified; R53.1 Weakness; R53.83 Other fatigue; R06.02 Shortness of breath; R05 Cough; R11.2 Nausea with vomiting, unspecified; R51 Headache; Z79.899 Other long term (current) drug therapy
CPT/HCPCS: 36592; 82728; 83540; 83550; 83735; 84100; 85025; G0463; 82040; 82247; 82310; 82374; 82435; 82565; 82947; 84075; 84132; 84155; 84295; 84450; 84460; 84520; 85007; 85027; 99212

== ENCOUNTER → 2017-12-09 | Outpatient (CLI) | payer MEDICARE, BC ==
[~2017-12-09] MED LIST changes: +FLUV100C PO; +NS 0.9% 20 ML SDV 20 ML ONE; +OXYC-830 PO
--- NOTE | 2017-12-09 18:29 | RADIOLOGY IMAGING REPORT ---
FACILITY: [facility] - [place] PATIENT NAME: Chela Metcalf : 1970 MR: [id number] V: [id number] EXAM DATE: ORDERING PHYSICIAN: TREY HOWARD TECHNOLOGIST: Location: [facility] - [place] Patient: Chela Metcalf : 1970 Visit/Account:[id number] Date of Sevice: 12/09/2017 Exam type: PICC LINE INSERTION, PICC LINE PLACEMENT History: Need for long-term IV access Comparison: October 04, 2017. Findings: Informed consent was obtained. The patient's left arm was prepped and draped usual sterile fashion. Local anesthesia was accomplished with 1% lidocaine. Utilizing sonographic guidance a 39 cm long tr immed 5 [place]ian double lumen power PICC was inserted via the patent left brachial vein with the distal tip resting in the superior vena cava. Both lumens of power PICC were flushed with 5 mL of saline f lush. Proximal portion of the PICC line was adhered the patient's arm with a the sterile dressing. The sonographic images were saved to PACS. The procedure was accomplished without apparent complicat ion. The fluoroscopy dose area product was 109 micro-Vasquez per meter squared. IMPRESSION: 1. Successful placement of a 39 cm long trimmed 5 Georgian double lumen power PICC inserted via the pa tent left brachial vein with the distal tip resting in superior vena cava. . Report Dictated By: Cordelia Hung MD at 12/09/2017 5:45 PM Report E-Signed By: Cordelia Hung MD at 12/09/2017 6:26 PM WSN:[id number]
--- NOTE | 2017-12-09 18:29 | RADIOLOGY IMAGING REPORT ---
FACILITY: [facility] PATIENT NAME: Chela Metcalf : 1970 MR: [id number] V: [id number] EXAM DATE: ORDERING PHYSICIAN: TREY HOWARD TECHNOLOGIST: Location: [facility] Patient: Chela Metcalf : 1970 Visit/Account:[id number] Date of Sevice: 12/09/2017 Exam type: PICC LINE INSERTION, PICC LINE PLACEMENT History: Need for long-term IV access Comparison: October 04, 2017. Findings: Informed consent was obtained. The patient's left arm was prepped and draped usual sterile fashion. Local anesthesia was accomplished with 1% lidocaine. Utilizing sonographic guidance a 39 cm long tr immed 5 [place] double lumen power PICC was inserted via the patent left brachial vein with the distal tip resting in the superior vena cava. Both lumens of power PICC were flushed with 5 mL of saline f lush. Proximal portion of the PICC line was adhered the patient's arm with a the sterile dressing. The sonographic images were saved to PACS. The procedure was accomplished without apparent complicat ion. The fluoroscopy dose area product was 109 micro-Vasquez per meter squared. IMPRESSION: 1. Successful placement of a 39 cm long trimmed 5 [place] double lumen power PICC inserted via the pa tent left brachial vein with the distal tip resting in superior vena cava. . Report Dictated By: Cordelia Hung MD at 12/09/2017 5:45 PM Report E-Signed By: Cordelia Hung MD at 12/09/2017 6:26 PM WSN:[id number]
== END ==
LOC: RAD 13:07
PROVIDERS: ATTEND Internal Medicine
DX: Z95.828 Presence of other vascular implants and grafts (principal)
CPT/HCPCS: 36569; 76937; C1751; J7050

== ENCOUNTER 2018-01-17 16:23 | Outpatient (RCR) | payer MEDICARE, BC ==
[2017-12-12 15:02] LABS: PLATELET COUNT, AUTOMATED 206 K/uL (150-450)
[2017-12-12 15:25] LABS: LDL CHOLESTEROL 101 mg/dl
[2017-12-19 16:29] LABS: PLATELET COUNT, AUTOMATED 194 K/uL (150-450)
[2017-12-19 17:03] VITALS: BP 96/66
[2017-12-26 16:32] VITALS: BP 85/55
[2017-12-26 16:36] LABS: PLATELET COUNT, AUTOMATED 199 K/uL (150-450)
[2018-01-07 15:48] VITALS: BP 90/61
[2018-01-07 16:26] LABS: PLATELET COUNT, AUTOMATED 212 K/uL (150-450)
[2018-01-16 17:30] LABS: PLATELET COUNT, AUTOMATED 213 K/uL (150-450)
[2018-01-17 16:23] VITALS: BP 95/70
[~2018-01-17 16:23] MED LIST changes: +ALTEPLASE RECOMB 2 MG VIAL IVP PRN; +DEXTROSE 5%(*) 100 ML BAG 100 ML IVPB PRN; -HYDR-4305 PO; +HYDR-627 PO; -NS 0.9% 20 ML SDV 20 ML ONE; +NS(*) 0.9% 100 ML BAG 100 ML IVPB PRN; +NS(*) 0.9% 500 ML BAG 500 ML IV PRN; +POTA8TAB41 PO; +WATER FOR INJ,STERILE 20 ML IVP PRN
--- NOTE | 2018-01-23 08:53 | Oncology Note ---
DATE OF ADMISSION: [*] EVENT DATE: January 17, 2018 DIAGNOSES 1. Iron deficiency anemia due to malabsorption. 2. Gastric bypass surgery with malabsorption. CHIEF COMPLAINT Patient is here today for followup of her iron deficiency anemia due to malabsorption due to her gastric bypass surgery. HEMATOLOGY HISTORY Patient is a 48-year-old female who has a history of gastric bypass surgery and anemia. The patient was maintained on ferrous gluconate without improvement. She had a colonoscopy done in 2015 that showed a polyp, which was removed. She denies any gastrointestinal hemorrhage currently. She had blood work done recently which showed a white count of 7.5, hemoglobin 9.2, hematocrit 28.6, platelets 261,000, with MCV 67.3. Her serum iron was 17, TIBC 410, iron saturation 4.1%, and ferritin was 7. Patient is complaining of weakness, fatigue, shortness of breath all the time, and feeling cold. HISTORY OF PRESENT ILLNESS Patient is here today for followup of her iron deficiency anemia due to malabsorption from gastric bypass surgery. She is complaining of exertional shortness of breath and chest tightness sometimes. She has also nausea, vomiting, and diarrhea. She has generalized aching in her joints. She has tingling and numbness in the hands and feet. She has also headache. She is weak, tired, and fatigued. PAST MEDICAL HISTORY 1. Iron deficiency anemia. 2. Asthma. 3. Sleep apnea. 4. GERD. 5. Depression. 6. Hypothyroidism. 7. Diabetes mellitus. PAST SURGICAL HISTORY 1. Appendectomy. 2. Cholecystectomy. 3. Gastric bypass surgery in 2007. 4. Surgery for bowel obstruction. 5. . 6. Right ankle surgery for fracture. SOCIAL HISTORY Patient is . She has children. She is on disability currently. Denies any abuse of tobacco, alcohol, or drugs. FAMILY HISTORY Father had some sort of cancer with intraocular melanoma, brother with skin cancer, and paternal grandfather had kidney cancer. CURRENT MEDICATIONS 1. Triamcinolone cream for topical use. 2. Marinol 2.5 mg daily. 3. Scopolamine patch 1.5 mg every three days. 4. Ferrous gluconate 240 mg twice daily. 5. Vitamin D 50,000 units every two weeks. 6. Olanzapine 10 mg daily. 7. Oxycodone 15 mg tablet q.6 hourly. 8. Fludrocortisone acetate 0.5 mg tablet twice daily. 9. Levothyroxine 100 mcg daily. 10. Pantoprazole 40 mg daily. 11. Folic acid 1 mg daily. 12. Clonazepam 1 mg t.i.d. 13. Retinoid topical cream. 14. Thiamine vitamin B 100 mg tablet daily. 15. Vitamin D3 1000 units three tablets daily. 16. Calcium 200 mg tablet 1 mg twice daily. 17. Fluoxetine 20 mg capsule two tablets daily. 18. Sucralfate 1 g twice daily. 19. Vitamin B12 shots 1000 mcg every two weeks. ALLERGIES SULFA which caused hives. NSAIDs. REVIEW OF SYSTEMS CONSTITUTIONAL: Patient is feeling cold all the time. HEENT: Ears: No tinnitus or hearing problem. Nose: She has nasal discharge. Mouth: No sore throat or mouth ulcers. Eyes: No diplopia or visual changes. RESPIRATORY: She has exertional shortness of breath, and she has tightness sometimes. CARDIOVASCULAR: No chest pain, orthopnea, or paroxysmal nocturnal dyspnea (PND). No edema. No palpitations. GASTROINTESTINAL: She has nausea, vomiting, and diarrhea. GENITOURINARY: She has recovered from UTI. MUSCULOSKELETAL: She has generalized aches. NEUROLOGIC: She has tingling and numbness in the hands and feet and a headache. HEMATOLOGIC: She is weak, tired, and fatigued. PHYSICAL EXAMINATION GENERAL: Looks stable. Well developed, well nourished, and in no acute distress. VITAL SIGNS: Reviewed. HEENT: Head: Atraumatic. No sinus tenderness to palpation. Eyes: No icterus or conjunctivitis. Mouth and Throat: No oral thrush or mucositis. NECK: Supple. No cervical or supraclavicular lymphadenopathy. LUNGS: Clear to auscultation and percussion bilaterally. HEART: Regular rate and rhythm. No gallops, murmurs, clicks, or rubs. ABDOMEN: The feeding tube is noted and working well. EXTREMITIES: No cyanosis, clubbing, or edema. LYMPHATICS: No peripheral lymphadenopathy. NEUROLOGICAL: Conscious, alert, and oriented times three. No focal motor or sensory deficits. PSYCHIATRIC: Mood and affect appear normal. SKIN: No skin rash, bruise, or purpuric eruption. DIAGNOSTIC DATA CBC shows white count 6.6, hemoglobin 15.7, hematocrit 45.3, platelets 213,000. Chem panel totally normal except calcium 8.1, BUN 2, albumin 3.3. Iron studies showed serum iron 54, TIBC 346, iron saturation 15.6%, and ferritin of 9, which is down from 29. ASSESSMENT 1. Iron deficiency anemia due to malabsorption from her gastric bypass surgery. Patient received Injectafer infusion in May 2017. Her ferritin improved from 4 to 15 to 25, but currently it drops to 9. The rest of her iron studies are within the normal range. Her iron saturation currently is 15.6%, down from 29.8%. I am planning to proceed with Injectafer infusion at this time, and I will see the patient again in six months with CBC, chemistry panel, and iron studies with ferritin. 2. Gastric bypass surgery with malabsorption due to it. PLAN 1. Injectafer 750 mg intravenous infusion weekly for two weeks. 2. Patient to return in six months with CBC and iron studies with ferritin. 3. Patient to contact us for any new concerns or complaints. This is a wrong for the account and patient was seen on 01/17/2018 and her note is signed already D/T: [id number] THADDEUS CC: CORETTA
[2018-02-12] MEDS ORDERED: POTA8TAB41 PO (16:53)
== END 2018-02-19 07:21 | disposition home or self-care (01) ==
LOC: ONC 16:23
PROVIDERS: ATTEND Internal Medicine
DX: D50.8 Other iron deficiency anemias (principal); T85.598A Other mechanical complication of other gastrointestinal prosthetic devices, implants and grafts, initial encounter; R62.7 Adult failure to thrive; K29.70 Gastritis, unspecified, without bleeding; Z98.84 Bariatric surgery status; K90.9 Intestinal malabsorption, unspecified; R53.1 Weakness; R53.83 Other fatigue; R06.02 Shortness of breath; R05 Cough; R11.2 Nausea with vomiting, unspecified; R51 Headache; Z79.899 Other long term (current) drug therapy
CPT/HCPCS: 36592; 82306; 82607; 82728; 82746; 83540; 83550; 83735; 84100; 84443; 85025; G0463; 36415; 82040; 82247; 82310; 82374; 82435; 82465; 82565; 82947; 83718; 84075; 84132; 84155; 84295; 84450; 84460; 84478; 84520; 96374; 99212; J2997; J7040

== ENCOUNTER 2018-03-03 15:30 | Outpatient (RCR) | payer MEDICARE, BC ==
[2018-01-16 17:39] VITALS: BP 121/67
--- NOTE | 2018-01-17 18:40 | ONCOLOGY FOLLOW UP NOTE ---
EVENT DATE: January 17, 2018 DIAGNOSES 1. Iron deficiency anemia due to malabsorption. 2. Gastric bypass surgery with malabsorption. CHIEF COMPLAINT Patient is here today for followup of her iron deficiency anemia due to malabsorption due to her gastric bypass surgery. HEMATOLOGY HISTORY Patient is a 48-year-old female who has a history of gastric bypass surgery and anemia. The patient was maintained on ferrous gluconate without improvement. She had a colonoscopy done in 2015 that showed a polyp, which was removed. She denies any gastrointestinal hemorrhage currently. She had blood work done recently which showed a white count of 7.5, hemoglobin 9.2, hematocrit 28.6, platelets 261,000, with MCV 67.3. Her serum iron was 17, TIBC 410, iron saturation 4.1%, and ferritin was 7. Patient is complaining of weakness, fatigue, shortness of breath all the time, and feeling cold. HISTORY OF PRESENT ILLNESS Patient is here today for followup of her iron deficiency anemia due to malabsorption from gastric bypass surgery. She is complaining of exertional shortness of breath and chest tightness sometimes. She has also nausea, vomiting, and diarrhea. She has generalized aching in her joints. She has tingling and numbness in the hands and feet. She has also headache. She is weak, tired, and fatigued. PAST MEDICAL HISTORY 1. Iron deficiency anemia. 2. Asthma. 3. Sleep apnea. 4. GERD. 5. Depression. 6. Hypothyroidism. 7. Diabetes mellitus. PAST SURGICAL HISTORY 1. Appendectomy. 2. Cholecystectomy. 3. Gastric bypass surgery in 2007. 4. Surgery for bowel obstruction. 5. . 6. Right ankle surgery for fracture. SOCIAL HISTORY Patient is . She has children. She is on disability currently. Denies any abuse of tobacco, alcohol, or drugs. FAMILY HISTORY Father had some sort of cancer with intraocular melanoma, brother with skin cancer, and paternal grandfather had kidney cancer. CURRENT MEDICATIONS 1. Triamcinolone cream for topical use. 2. Marinol 2.5 mg daily. 3. Scopolamine patch 1.5 mg every three days. 4. Ferrous gluconate 240 mg twice daily. 5. Vitamin D 50,000 units every two weeks. 6. Olanzapine 10 mg daily. 7. Oxycodone 15 mg tablet q.6 hourly. 8. Fludrocortisone acetate 0.5 mg tablet twice daily. 9. Levothyroxine 100 mcg daily. 10. Pantoprazole 40 mg daily. 11. Folic acid 1 mg daily. 12. Clonazepam 1 mg t.i.d. 13. Retinoid topical cream. 14. Thiamine vitamin B 100 mg tablet daily. 15. Vitamin D3 1000 units three tablets daily. 16. Calcium 200 mg tablet 1 mg twice daily. 17. Fluoxetine 20 mg capsule two tablets daily. 18. Sucralfate 1 g twice daily. 19. Vitamin B12 shots 1000 mcg every two weeks. ALLERGIES SULFA which caused hives. NSAIDs. REVIEW OF SYSTEMS CONSTITUTIONAL: Patient is feeling cold all the time. HEENT: Ears: No tinnitus or hearing problem. Nose: She has nasal discharge. Mouth: No sore throat or mouth ulcers. Eyes: No diplopia or visual changes. RESPIRATORY: She has exertional shortness of breath, and she has tightness sometimes. CARDIOVASCULAR: No chest pain, orthopnea, or paroxysmal nocturnal dyspnea (PND). No edema. No palpitations. GASTROINTESTINAL: She has nausea, vomiting, and diarrhea. GENITOURINARY: She has recovered from UTI. MUSCULOSKELETAL: She has generalized aches. NEUROLOGIC: She has tingling and numbness in the hands and feet and a headache. HEMATOLOGIC: She is weak, tired, and fatigued. PHYSICAL EXAMINATION GENERAL: Looks stable. Well developed, well nourished, and in no acute distress. VITAL SIGNS: Reviewed. HEENT: Head: Atraumatic. No sinus tenderness to palpation. Eyes: No icterus or conjunctivitis. Mouth and Throat: No oral thrush or mucositis. NECK: Supple. No cervical or supraclavicular lymphadenopathy. LUNGS: Clear to auscultation and percussion bilaterally. HEART: Regular rate and rhythm. No gallops, murmurs, clicks, or rubs. ABDOMEN: The feeding tube is noted and working well. EXTREMITIES: No cyanosis, clubbing, or edema. LYMPHATICS: No peripheral lymphadenopathy. NEUROLOGICAL: Conscious, alert, and oriented times three. No focal motor or sensory deficits. PSYCHIATRIC: Mood and affect appear normal. SKIN: No skin rash, bruise, or purpuric eruption. DIAGNOSTIC DATA CBC shows white count 6.6, hemoglobin 15.7, hematocrit 45.3, platelets 213,000. Chem panel totally normal except calcium 8.1, BUN 2, albumin 3.3. Iron studies showed serum iron 54, TIBC 346, iron saturation 15.6%, and ferritin of 9, which is down from 29. ASSESSMENT 1. Iron deficiency anemia due to malabsorption from her gastric bypass surgery. Patient received Injectafer infusion in May 2017. Her ferritin improved from 4 to 15 to 25, but currently it drops to 9. The rest of her iron studies are within the normal range. Her iron saturation currently is 15.6%, down from 29.8%. I am planning to proceed with Injectafer infusion at this time, and I will see the patient again in six months with CBC, chemistry panel, and iron studies with ferritin. 2. Gastric bypass surgery with malabsorption due to it. PLAN 1. Injectafer 750 mg intravenous infusion weekly for two weeks. 2. Patient to return in six months with CBC and iron studies with ferritin. 3. Patient to contact us for any new concerns or complaints. MTDD
[~2018-03-03 15:30] MED LIST changes: -ALTEPLASE RECOMB 2 MG VIAL IVP PRN; -DEXTROSE 5%(*) 100 ML BAG 100 ML IVPB PRN; -NS(*) 0.9% 100 ML BAG 100 ML IVPB PRN; -NS(*) 0.9% 500 ML BAG 500 ML IV PRN; -WATER FOR INJ,STERILE 20 ML IVP PRN
[2018-03-03] MEDS ORDERED: WATER FOR INJ,STERILE 20 ML IVP PRN (15:50)
[2018-03-03] MEDS ORDERED: NS(*) 0.9% 500 ML BAG 500 ML IV PRN (15:50)
[2018-03-03] MEDS ORDERED: NS(*) 0.9% 100 ML BAG 100 ML IVPB PRN (15:50)
[2018-03-03] MEDS ORDERED: DEXTROSE 5%(*) 100 ML BAG 100 ML IVPB PRN (15:50)
[2018-03-03] MEDS ORDERED: ALTEPLASE RECOMB 2 MG VIAL IVP PRN (15:50)
[2018-03-03] MEDS ORDERED: FERRIC CARBOXY 750 MG SDV 750 MG in NS(*) 0.9% 250 ML BAG 250 ML IVP PRN (16:15)
[2018-03-03] MEDS ORDERED: FERRIC CARBOXY 750 MG SDV 750 MG in NS(*) 0.9% 250 ML BAG 250 ML IVP ONE (16:15)
[2018-03-03 16:29] VITALS: BP 99/63
== END 2018-04-16 ==
LOC: SPU 15:30
PROVIDERS: ATTEND Internal Medicine Hematology
DX: D50.9 Iron deficiency anemia, unspecified (principal); Z98.84 Bariatric surgery status; R53.1 Weakness; R53.83 Other fatigue; R11.2 Nausea with vomiting, unspecified; R19.7 Diarrhea, unspecified; R06.02 Shortness of breath; Z79.899 Other long term (current) drug therapy
CPT/HCPCS: 36415; 82728; 83540; 83550; 96365; J1439; J7050

== ENCOUNTER 2018-04-07 16:00 | Outpatient (RCR) | payer MEDICARE, BC ==
[2018-02-11 16:52] LABS: PLATELET COUNT, AUTOMATED 222 K/uL (150-450)
[2018-02-18 16:35] VITALS: BP 93/64
[2018-02-18 17:03] LABS: PLATELET COUNT, AUTOMATED 195 K/uL (150-450)
[2018-04-07 16:10] VITALS: BP 86/64
[2018-04-07 16:44] LABS: PLATELET COUNT, AUTOMATED 179 K/uL (150-450)
== END 2018-05-02 16:29 | disposition home or self-care (01) ==
LOC: SPU 16:00
PROVIDERS: ATTEND Internal Medicine
DX: R62.7 Adult failure to thrive (principal); Z98.84 Bariatric surgery status; Z93.1 Gastrostomy status; R63.4 Abnormal weight loss; R74.8 Abnormal levels of other serum enzymes; I95.9 Hypotension, unspecified
CPT/HCPCS: 36592; 51702; 82040; 82247; 82310; 82374; 82435; 82565; 82947; 83735; 84075; 84100; 84132; 84155; 84295; 84450; 84460; 84520; 85025

== ENCOUNTER 2018-08-07 15:16 | Outpatient (RCR) | payer MEDICARE, BC ==
[2018-05-12 14:10] VITALS: BP 100/65
[2018-05-12 14:27] LABS: PLATELET COUNT, AUTOMATED 133 K/uL (150-450)
[2018-07-04 12:18] LABS: PLATELET COUNT, AUTOMATED 221 K/uL (150-450)
[2018-07-04 13:07] VITALS: BP 100/68
[~2018-08-07 15:16] MED LIST changes: +OSE75 PO
[2018-08-07 15:25] VITALS: BP 89/51
[2018-08-07 17:19] LABS: PLATELET COUNT, AUTOMATED 264 K/uL (150-450)
[2018-08-07 18:07] LABS: LDL CHOLESTEROL 88 mg/dl
[2018-08-08] MEDS ORDERED: ERGO500037 PO (12:55)
== END 2018-08-10 ==
LOC: SPU 15:16
PROVIDERS: ATTEND Internal Medicine
DX: R62.7 Adult failure to thrive (principal); Z98.84 Bariatric surgery status; Z93.1 Gastrostomy status; R63.4 Abnormal weight loss; R74.8 Abnormal levels of other serum enzymes; I95.9 Hypotension, unspecified
CPT/HCPCS: 36592; 82040; 82247; 82306; 82310; 82374; 82435; 82465; 82565; 82607; 82728; 82746; 82947; 83540; 83550; 83718; 83735; 84075; 84100; 84132; 84155; 84295; 84443; 84450; 84460; 84478; 84520; 85025

== ENCOUNTER → 2018-08-14 | Outpatient (CLI) | payer MEDICARE, BC | LOC: SPU 07:38 | PROVIDERS: ATTEND Internal Medicine Hematology | DX: Z02.9 Encounter for administrative examinations, unspecified (principal) ==

== ENCOUNTER 2018-09-04 16:29 | Outpatient (RCR) | payer MEDICARE, BC | END 2018-09-08 15:53 | disposition home or self-care (01) | LOC: SPU 16:29 | PROVIDERS: ATTEND Internal Medicine | DX: K28.7 Chronic gastrojejunal ulcer without hemorrhage or perforation (principal); G89.29 Other chronic pain; R63.4 Abnormal weight loss; Z98.84 Bariatric surgery status; Z87.11 Personal history of peptic ulcer disease; E78.5 Hyperlipidemia, unspecified ==

== ENCOUNTER 2018-10-20 11:14 | Outpatient (RCR) | payer MEDICARE, BC | END 2018-11-19 11:01 | disposition home or self-care (01) | LOC: SPU 11:14 | PROVIDERS: ATTEND Internal Medicine Hematology | DX: Z02.9 Encounter for administrative examinations, unspecified (principal) ==

== ENCOUNTER → 2018-10-20 | Outpatient (CLI) | payer MEDICARE, BC ==
[~2018-10-20] MED LIST changes: -RANI-366 PO; +RANI-54 PO
[2018-10-20 11:30] VITALS: BP 91/61
[2018-10-20 11:49] LABS: PLATELET COUNT, AUTOMATED 177 K/uL (150-450)
== END ==
LOC: SPU 11:20
PROVIDERS: ATTEND Internal Medicine
DX: R79.9 Abnormal finding of blood chemistry, unspecified (principal); I95.9 Hypotension, unspecified; E55.9 Vitamin D deficiency, unspecified; D64.9 Anemia, unspecified; Z78.9 Other specified health status
CPT/HCPCS: 36592; 82040; 82247; 82310; 82374; 82435; 82565; 82947; 83735; 84075; 84100; 84132; 84155; 84295; 84450; 84460; 84520; 85025

== ENCOUNTER → 2018-12-22 | Outpatient (CLI) | payer MEDICARE, BC ==
[~2018-12-22] MED LIST changes: +CEPH500T7 PO
== END ==
LOC: LAB 15:04
PROVIDERS: ATTEND Internal Medicine
DX: N39.0 Urinary tract infection, site not specified (principal); B96.1 Klebsiella pneumoniae [K. pneumoniae] as the cause of diseases classified elsewhere
CPT/HCPCS: 81001; 87077; 87088; 87186